=== PATIENT | female | born 1940 | race Caucasian/White ===

== ENCOUNTER 2025-07-10 21:01 | Inpatient (IN) | payer BC, MEDICARE ==
[~2025-07-10] VITALS: Ht 157.5 cm; Wt 48.0 kg
[2025-07-10] MEDS ORDERED: SENN-302 PO (21:32)
[2025-07-10] MEDS ORDERED: TRAM50TA2 PO (21:32)
--- NOTE | 2025-07-10 21:38 | Physician Documentation ---
History of Present Illness General Chief Complaint: Constipation Stated Complaint: SMALL BOWEL OBSTRUCTION Time Seen by MD: 21:12 Mode of Arrival: EMS, Stretcher History of Present Illness Initial Comments This is a pleasant 85-year-old female with a history of bowel resection in 1960s, subsequent history of three small-bowel obstructions two of which required surgical intervention on one resolved spontaneously, presents today as a transfer from outside facility for higher level of care/general surgical consultation because she was diagnosed with a small-bowel obstruction on the CT at the outside facility. She states that the pain in her right upper quadrant began yesterday without any obvious trigger provocation. It was burning pain, moderate to severe, accompanied by nausea and vomiting similar to prior small- bowel obstruction. She reports no flatus or bowel movements. Denies any chest pain or difficulty breathing. She states that after the outside facility placed in NG tube she is feeling better. No concern for tobacco, alcohol or illicit substances use. Records from the outside facility reviewed. Her note from the outside facility, 85-year-old female complaining of nausea and vomiting since last night. She complains of epigastric pain as well. She last ate last evening. She had Andrés sauce and turkey. She had partial colectomy in the for polyps. Since then she has had to three episodes of SBO. Two of those times required surgical intervention to resolve. No fever. Denies cough or URI symptoms. No dysuria or frequency. She states she has chronic constipation because she takes tramadol regularly for pain from rheumatoid arthritis. She takes tofacitinib for RA. Her daughter gave a lot of history as well as the patient. Last year after hip replacement surgery patient had an ileus that she was hospitalized for. Per the note of outside facility she has a known history of hyperlipidemia and AFib. Her physical exam was notable for tenderness in the left upper quadrant without guarding or rebound. Her white count was normal 7.13, hemoglobin was normal at 12.7, platelets were normal at 211. Renal function was normal. CT shows marked dilation of small bowel in constipation with a large bowel. The radiologist confirmed SBO. The patient was transferred to our facility. Medication Reconciliation Allergies: Coded Allergies: No Known Allergies (Unverified , 07/10/25) Scheduled Acetaminophen (Tylenol Extra Strength), 1 TABLET PO Q8H, (Reported) Atorvastatin Calcium* (Lipitor*), 1 TAB PO DAILY, (Reported) Estradiol (Estradiol), 1 PATCH TD Q7D, (Reported) Loperamide Hcl (Loperamide), 1 CAP PO Q2H, (Reported) Lorazepam (Ativan), 1 TAB PO Q6H, (Reported) Melatonin (Melatonin), 1 TAB PO HS, (Reported) Omeprazole (Prilosec), 1 CAP PO DAILY, (Reported) Sennosides/Docusate Sodium (Senna Plus 8.6-50 mg Tablet), 2 TAB PO HS, (Reported) Tofacitinib Citrate (Xeljanz), 1 TAB PO Q12H, (Reported) Scheduled PRN ONDANSETRON ODT 4mg tablet (Ondansetron Odt), 1 TAB PO Q6H PRN PRN for nausea/vomiting, (Reported) Tramadol HCl (Tramadol HCl), 50 TAB PO Q12H PRN PRN for pain, (Reported) Miscellaneous Medications Naloxone HCl (Naloxone HCl), (Reported) Review of Systems ROS 10 point review of systems was performed and unless noted above in HPI is negative for acute process/complaint. Physical Exam Physical Exam Vital Signs: Temperature: 97.6, Source: Temporal, Heart Rate: 82, Respiratory Rate: 20, BP: 136/72, Pulse Oximetry: 98, Weight: 48.000 Oxygen Flow Rate: 0 Physical Exam GENERAL: Awake, alert, oriented, GCS 15, no apparent distress, non-toxic appearing, answers questions, follows commands appropriately. HEENT: Atraumatic, normocephalic, NG-tube noted, pupils equal, extraocular muscles intact, sclerae anicteric, mucus membranes moist, oropharynx is clear, no stridor. NECK: supple, full active range of motion, trachea midline, no thyromegaly, no lymphadenopathy, no JVD. CARDIOVASCULAR: regular rate/rhythm, no murmurs/gallops/rubs, Pulses are 2+ in all extremities and symmetric. Capillary refill less than 2 seconds. PULMONARY: Nonlabored, good air movement ,no respiratory distress, speaking in full sentences, clear to auscultation bilaterally, no wheezing, no ronchi, no rales, no accessory muscle use. GASTROINTESTINAL: Soft, diffusely tender without guarding or rebound, non- distended, normal active bowel sounds, no organomegaly, no pulsatile masses, no CVA tenderness. NEUROLOGIC: Lucid with normal mental status. Normal facial symmetry. Moves all extremities symmetrically and with purpose. No truncal ataxia. Speech is fluid without evidence of dysarthria or aphasia, no focal deficits appreciated. MUSCULOSKELETAL: There is full range of motion of all extremities. There is no joint pain or joint swelling or joint erythema. There is no muscle pain or tenderness or swelling. EXTREMITIES: warm, well-perfused, no cyanosis, no clubbing, no edema, no acute deformities. Skin: warm, dry, no rashes or lesions, no jaundice, no petechiae orpurpura. No ecchymosis. PSYCHIATRIC: Normal affect, normal insight, normal concentration. Focused exam: [] Progress Results/Orders Results/Orders Orders - INDIA MORILLO DO Electrocardiogram (07/10/25 21:23) Culture Blood (07/10/25 21:23) Page Hospitalist (07/10/25 21:23) Fill Out Med Reconciliation (07/10/25 21:23) Ct Abdomen Pelvis (07/11/25 10:53) Completed Orders - INDIA MORILLO DO Electrocardiogram (07/10/25 21:23) Cbc/Diff (07/10/25 21:23) MG (07/10/25 21:23) CMP (07/10/25 21:23) Hs Troponin I W Calculations (07/10/25 21:23) Hs Troponin I W Calculations (07/10/25 23:23) Lacticsepsis (07/10/25 21:23) Diatr Meglu/Diatrizoate 30ml (Gastrograf (07/10/25 23:00) Ondansetron Inj. (Zofran 4mg/2ml Vial) (07/10/25 21:25) Morphine 4mg/Ml Inj. (Morphine Inj.) (07/10/25 21:25) Ct Abdomen Pelvis (07/11/25 10:53) Morphine 4mg/Ml Inj. (Morphine Inj.) (07/11/25 00:20) Vital Signs 07/10/25 07/10/25 07/10/25 07/10/25 21:12 21:16 21:22 21:42 Temp 97.8 97.6 Pulse 74 82 Resp 20 20 17 B/P (MAP) 136/72 136/72 (93) Pulse Ox 97 98 O2 Flow Rate 0 0 07/10/25 23:49 Temp 97.6 Pulse 78 Resp 15 B/P (MAP) 129/67 (87) Pulse Ox 98 O2 Flow Rate 0 Laboratory Tests Test 07/10/25 22:07 07/10/25 23:18 White Blood Count 6.7 Red Blood Count 4.25 Hemoglobin 12.3 Hematocrit 37.2 Mean Corpuscular Volume 87.4 Mean Corpuscular Hemoglobin 28.9 Mean Corpuscular Hemoglobin Concent 33.1 Red Cell Distribution Width 14.9 H Platelet Count 199 Mean Platelet Volume 8.0 Neutrophils (%) (Auto) 79.8 H Lymphocytes (%) (Auto) 7.6 L Monocytes (%) (Auto) 12.0 Eosinophils (%) (Auto) 0.3 Basophils (%) (Auto) 0.3 Neutrophils # (Auto) 5.4 Lymphocytes # (Auto) 0.5 L Monocytes # (Auto) 0.8 Eosinophils # (Auto) 0.0 Basophils # (Auto) 0.0 CBC Comment Sodium Level 136 Potassium Level 4.5 Chloride Level 103 Carbon Dioxide Level 28.5 Anion Gap 5 L Blood Urea Nitrogen 16 Creatinine 0.99 H Estimated GFR/1.73 m2 53 BUN/Creatinine Ratio 16.2 Glucose Level 114 H Lactic Acid Level 1.3 Calcium Level 8.5 Magnesium Level 1.9 Total Bilirubin 1.4 H Aspartate Amino Transf (AST/SGOT) 18 Alanine Aminotransferase (ALT/SGPT) 11 L Alkaline Phosphatase 77 Troponin I High Sensitivity 15 14 Total Protein 6.8 Albumin 3.1 L Globulin 3.7 Albumin/Globulin Ratio 0.8 L Chemistry Comments Troponin I High Sens Percent Delta 6 Troponin I Hi Sens Absolute Change -1 Microbiology Date/Time Source Procedure Growth Status 07/10/25 22:08 Blood Arm Left Blood Culture - Preliminary NO GROWTH AFTER 1 DAY Resulted EKG/XRAY/CT/US/VASC/MRI EKG : Additional Comment EKG was obtained and interpreted by myself shows sinus rhythm of 72, normal KS interval, narrow QRS, no QT prolongation, normal axis, no STEMI Medical Decision Making Additional information obtaine: old records, other (EMS) Findings Facility Status: ED Holds, E process The plan was discussed with the patient, who demonstrates clear understanding of the plan and is in agreement with the plan unless otherwise noted in the chart. All questions have been answered, all concerns were addressed unless otherwise documented. I was available throughout their ED stay for frequent reassessment and questions. Differential Diagnoses (considered and possible or likely): [Differential diagnosis considered includes most likely represents small bowel obstruction, b ased on outside diagnosis, less likely acute appendicitis, acute cholecystitis, pancreatitis, gastritis, PUD, diverticulitis, mesenteric ischemia, abdominal aortic aneurysm, enteritis, colitis, fecal impaction, volvulus, IBS, inflammatory bowel disease, specific food intolerance, peritonitis, perforated viscous, malignancy, UTI, abscess, and abdominal pain NOS. Pelvic source of pain was also considered including endometritis, dysmenorrhea, ovarian cyst, ovarian torsion, PID, TOA, cervicitis, vaginitis, or uterine fibroid. History, physical exam, and workup exclude many of the more serious causes listed above. ] ??Differential Diagnoses (considered and unlikely, not requiring evaluation currently): [Aortic/great vessels dissection was considered but it is unlikely based on absence of ripping, tearing, migratory chest pain, absence of syncope or focal neurologic deficits, physical examination indicating equal and symmetric pulses.] MDM Data Please see [facility] for the following: Independent Historians and external Records Review. Historian: [Patient] Independent Historians: ?[Transfer EMS, record review] Medication Management: [Reviewed medication list] Social History and determinants: [Reviewed] Please see the body of the note for the following: Any independent interpretations of ECG, imaging studies. All vitals signs/haemodynamics, ordered tests were independently reviewed and interpreted by myself. Nursing triage complaint and vitals reviewed, additional nursing notes were reviewed as available and I agree unless otherwise noted or documented in contradiction in the chart Vital Signs: Independently reviewed Labs: Independently interpreted Imaging: Independently interpreted Old Medical Records: Independently reviewed, see [facility] for relevant summary and information Pulse Oximetry: [98%] interpreted as [normal on room air] by me [Patient Accounts Specialist: [Regular Rate, Regular rhythm, no ectopy, NSR] reviewed and interpreted by me] Additionally notably showing: [Hemodynamically she is stable.] Tests considered but not ordered include: [Imaging will be repeated with oral contrast administered over prolonged period of time to determine the transition point] Social Determinants of Health Impact: Patient was evaluated in [place] due to below par ratio of patient to medical providers. [] Comorbid Conditions Impacting Present Evaluation and Care/Treatment: [History of bowel resection small-bowel obstruction] Management Discussions with other Healthcare Providers: [Hospitalist regarding admission] Treatment and Disposition Medication Management (Given or considered): [Pain management and nausea management]. See EMR for details Consideration for Hospitalization/Escalation/Deescalation of Care: Admission for observation has been considered, for further management of her small-bowel obstruction ?ED Course:?[No clinical deterioration] ?Shared decision making:?[] Code status:?FULL Please see the full Electronic Medical Record for full details of nursing docume ntation, medications list, other records of complete past medical history and conditions, vital signs, laboratory studies, and any radiologic study interpretations by radiologists. Portions of this note were completed using Lala dictation software and as a result there may exist minor errors in spelling. I have reviewed elements of past family and social history and agree as included in note. Differential Diagnosis See main body of the note Departure Admitted to Inpatient Unit: to hospitalist Impression: Primary Impression: Small bowel obstruction Referrals: NO PRIMARY CARE PROVIDER (PCP) Signature Scribe Signature: No scribe Attestation: Date: Jul 10, 2025 Time: 21:33 This note accurately reflects clinical decisions, work performed by myself, India Morillo, INDIA LEUNG DO Jul 10, 2025 21:38
--- NOTE | 2025-07-10 21:40 | ELECTROCARDIOGRAPH REPORT ---
[facility] Test Date: 2025-07-10 Test Time: 21:37:01 Pat Name: ROSIO DICKERSON Department: [facility]- Patient ID: [facility]-[id number] Room: [place] [address] Gender: F Sql Dba: : 1940 Requested By: INDIA MORILLO Order Number: [id number] Reading MD: Dr. Nico Jain Measurements Intervals [place] Rate: 72 P: 83 [place]: 185 QRS: 21 QRSD: 92 T: 10 QT: 409 QTc: 448 Interpretive Statements Sinus rhythm Anteroseptal infarct, age indeterminate Electronically Signed On 07-11-2025 8:53:[address] Nico Jain Please click the below link to view image of tracing.
[2025-07-10] MEDS: morphine 4 MG/ML inj SYRINge IV ONE (21:42)
[2025-07-10] MEDS: ondansetron/PF 4mg/2ml inj IV ONE (21:45)
[2025-07-10 22:17] LABS: MEAN PLATELET VOLUME 8.0 FL (7.4-10.4); RED CELL DISTRIBUTION WIDTH 14.9 % (11.5-14.5)
[2025-07-10 22:31] LABS: CREATININE 0.99 MG/DL (0.40-0.90); TOTAL CARBON DIOXIDE 28.5 MMOL/L (24-32); eCRCL 31 ML/MIN; eGFR 53 ML/MIN
[2025-07-10] MEDS: diatr meglu/diatrizoate 30ml oral sol.-(3 dose) bottle PO SCH (23:16)
[2025-07-11] MEDS ORDERED: potassium Cl 20 mEq SR tablet PO PRN ×2 (00:15)
[2025-07-11] MEDS ORDERED: magnesium sulf-water 4G/100mL 100 ML IV PRN (00:15)
[2025-07-11] MEDS ORDERED: potassium Cl 40MEQ/1/2NS 520ml 520 ML IV PRN (00:15)
[2025-07-11] MEDS ORDERED: HYDROcodone/acetaminophen 10/325mg tab PO PRN (00:15)
[2025-07-11] MEDS ORDERED: magnesium hydroxide 30ml (MOM) UD suspension PO PRN (00:15)
[2025-07-11] MEDS ORDERED: mag hydrox/Alum hydrox/simeth 30ml oral suspension PO PRN (00:15)
[2025-07-11] MEDS ORDERED: magnesium Cl slow-release 64mg tablet PO PRN (00:15)
[2025-07-11] MEDS ORDERED: magnesium sulf-water 2g/50mL 50 ML IV PRN (00:15)
[2025-07-11] MEDS ORDERED: HYDROcodone/acetaminophen 5mg/325mg tablet PO PRN (00:15)
[2025-07-11] MEDS: morphine 4 MG/ML inj SYRINge IV ONE (00:24)
[2025-07-11] MEDS: normal saline 1000ml 1,000 ML IV SCH (01:22)
--- NOTE | 2025-07-11 02:01 | HISTORY AND PHYSICAL-Residence ---
History & Physical Providers to CC Resident Creating Document: WALESKA LY, RES CC: NGOZI SALOMON MD ~ History of Present Illness Reason for Admit\Complaint: Small-bowel obstruction History of Present Illness 85-year-old fragile female patient, past history of recurrent small-bowel obstructions, partial bowel resection, severe rheumatoid arthritis was a transferred to us from [facility]. As per records, patient presented to the ED with chief complaints of severe epigastric pain, associated with three episodes of emesis of bilious in nature. Patient has a had three small bowel obstructions in the past, two out of which required surgical intervention to resolve. Patient had abdominal CT done at [facility], which showed findings consistent with small-bowel obstruction not extensive. Patient was placed on NG tube, which drained bilious fluid. Patient reported significant decrease in discomfort/pain post NG tube placement. Patient was transferred to our facility possible further intervention. Patient also has a history of ileus post hip replacement surgery last year Patient lives alone in her house Patient's daughter stays about 75 miles from patient's house Patient's primary care doctor is Dr. Alex Carrizales from [facility] As per patient, normally does not use a walker. Has had multiple falls in the last one year, has had a wrist fracture and hip fracture because of falls. Allergies: Coded Allergies: No Known Allergies (Unverified , 07/10/25) Home Medications Home Medications Active Reported Senna Plus 8.6-50 mg Tablet (Sennosides/Docusate Sodium) 8.6 Mg-50 Mg Tablet 2 Tab PO HS 14 Days Tramadol HCl 50 Mg Tablet 50 Tab PO Q12H PRN PRN 30 Days Past Medical History Past Medical History Prior three small-bowel obstructions Rheumatoid arthritis Chronic constipation Hypothyroidism Past Surgical History Surgical History Comment History of bowel resection for a polyp of 2 cm, partial bowel resection in 1959 Right hip replacement Bilateral breast augmentation Appendectomy Tonsillectomy Past Social History Social History Comment Patient has smoked for two years when she was young Patient denies any alcohol, tobacco use, current smoking history, illicit drug use ROS ROS Constitutional: No fever, dizziness, weakness, no decrease in appetite HEENT: Normal vision. No sore throat, epistaxis, tinnitus Cardiovascular: No chest pain/discomfort, palpitations, syncope. no pedal edema Respiratory: No sob, cough,hemoptysis Gastrointestinal: Moderate abdominal pain, nausea, vomiting. No diarrhea, melena. Genitourinary: No frquency, urgency, incontinence, nocturia. No dysuria, hematuria Musculoskeletal: Normal, no pains Endocrine: No fatigue, polydipsia, polyuria. No heat or cold intolerance Neurologic: No headache, vertigo. No weakness, numbness or tingling of extremities Psychiatric: No hallucinations/delusions, no anhedonia, no suicidal ideation Hematologic: No bruises Exam Vitals: Vital Signs Date Time Temp Pulse Resp B/P (MAP) Pulse Ox O2 Delivery O2 Flow Rate FiO2 07/11/25 00:24 15 07/10/25 23:49 97.6 78 129/67 (87) 98 0 General: General: Awake, oriented to person, place and time, frail elderly woman HEENT: Conjunctive are pale, sclerae clear, no icterus, pupil is equal in both sides, reactive to light, no ear discharge, no pharyngeal erythema or an edema. NG tube in place-bilious fluid could be noted Neck: Supple, no JVD, no lymphadenopathy and thyromegaly. Chest: Equal air entry on both lungs, no additional sounds no rhonchi no wheezing at the moment. Bilateral breast implants Cardiovascular: S1-S2 regular sinus rhythm and, regular rate, no gallops, no rubs, no murmurs Abdomen: No visible peristalsis, bowel sounds absent on auscultation, soft, diffuse moderate tenderness, no guarding, no rigidity. Abdominal surgical scar noted Extremities:no pitting edema bilaterally, capillary refill intact, peripheral pulsations are intact on both sides, extremely deformed rheumatoid bilateral upper extremities bilateral knees and bilateral toes, chronic venous stasis and severe scaling noted on bilateral lower extremity, onychomycosis noted on all toes Neurologic: Mental status: alert and conscious, oriented to place, person and time, preserved memory, normal speech. Cranial nerves I-XII: Normal. Motor system: Preserved power, coordination, no evidenced involuntary movements, strength 5/5 in four extremities. Sensory system: Preserved temperature, pain and vibration sensation. 2+ deep tendon reflexes in biceps, triceps, quadriceps. Negative Babinski. Cerebellar: No nystagmus, dysdiadochokinesia, normal [id number] testing. Musculoskeletal: Scoliosis noted,extremely deformed bilateral knees and bilateral toes, chronic venous stasis and severe scaling noted on bilateral lower extremity, onychomycosis noted on all toes Skin: Warm and dry. Dry oral mucosa. Diagnostic Data Last Recorded Lab Results: 07/10/25220607/10/252206 Advance Care Planning Advanced Care plannin - 30 Minutes (Spent 18 minutes discussing advanced care directive/resuscitative methods patient decided she wanted to be a DNR) Additional Plan Assessment :85-year-old fragile female patient, past history of recurrent small- bowel obstructions, partial bowel resection, severe rheumatoid arthritis was a transferred to us from [facility] for further evaluation of current episode of small-bowel obstruction Small-bowel obstruction-NG tube in place draining bilious fluid Recurrent small-bowel obstruction Status post bowel resection post polyps Patient had chief complaints of abdominal pain, the patient in the epigastric region and diffuse abdominal pain throughout and had multiple episodes of bilious emesis CT scan as per [facility]: Small-bowel obstruction not extensive, small amount of free fluid in the pelvis, moderate constipation As per patient, the pain/discomfort decreased post NG tube placement([facility]) Her abdomen on palpation did not seem rigid, no bowel sounds were appreciated on auscultation. Did not consult surgeon as this time, because of the moderate severity of SBO and relief post NG tube placement Lactic acid, potassium within normal limits Plan NPO, NG tube in place CTA abdomen pelvis with oral contrast has been ordered Please consult surgeon in am Initiated the patient on fluids normal saline 100 mL/hour Severe Rheumatoid arthritis Patient is on biological Xeljanz XR (tofacitinib) Patient also take tramadol for her pain Pain medications in place Atrial fibrillation history Jhonatan Vasc score three Patient has a history of atrial fibrillation, does not take any anticoagulants for that Current EKG sinus rhythm Patient stated that she did take an anticoagulant once, but it made her very dizzy and upset her stomach and she did not want to take anything for it as she feels it is well controlled Ordered echocardiogram Telemetry monitoring ordered Chronic constipation Patient stated that she developed constipation after taking pain medications for her rheumatoid arthritis She takes senna for her constipation regularly Bowel care in place History of hypothyroidism Patient states that she has a history of hypothyroidism, but stopped taking medications as it was controlled Ordered TSH Moderate malnutrition BMI 19.4kg/m2, albumin 3.[address] History of recurrent falls Fall precautions in place History of depression Patient normally uses estradiol patch, continue once med rec is done Code Status: DNR DVT Prophylaxis: SCDs Analgesia/Sedation: Morphine/Oscar Lines/Tubes: PIV Nutrition: NPO PT:yes Prognosis: Guarded Disposition: Continue to monitor the patient, please contact surgeon in the a.m. med rec pending Waleska Ly MD Internal medicine resident,PGY-1 Patient discussed with resident. I agree with the H&P and assessment and plan as documented, with no changes. Ngozi Salomon MD Critical Care Date of Service: Jul 11, 2025 Billing Provider: NGOZI SALOMON MD, JAHNAVI, RES Jul 11, 2025 02:01 NGOZI SALOMON MD Jul 11, 2025 18:25
[2025-07-11] MEDS: PERFLUTREN PROTEIN-A MICROSPHR (Optison) 0.22 MG/ML 3ML VIAL IV ONE (02:25)
[2025-07-11 03:00] VITALS: BP 137/77; PULSE 81; RESP 18; TEMP 98; O2SAT 94
[2025-07-11 06:00] VITALS: BP 107/73; PULSE 66; RESP 16; TEMP 98.6; O2SAT 99
[2025-07-11] MEDS ORDERED: LORA-269 PO (07:10)
[2025-07-11] MEDS ORDERED: ATOR40TA PO (07:10)
[2025-07-11] MEDS ORDERED: OMEP40CA21 PO (07:10)
[2025-07-11] MEDS ORDERED: ONDA-243 PO (07:10)
[2025-07-11] MEDS ORDERED: LOPE2CAP PO (07:10)
[2025-07-11] MEDS ORDERED: MELA5TAB50 PO (07:10)
[2025-07-11] MEDS ORDERED: ACET-812 PO (07:10)
[2025-07-11] MEDS ORDERED: ESTR1PAT81 TD (07:10)
[2025-07-11] MEDS ORDERED: NALO4SPR22 (07:10)
[2025-07-11] MEDS ORDERED: TOFA5TAB PO (07:10)
[2025-07-11 07:17] LABS: PHOSPHORUS 3.8 MG/DL (2.3-4.5); PRO BRAIN NATRIURETIC PEPTIDE 2456.0 PG/ML (0-450)
[2025-07-11 08:00] VITALS: RESP 16; O2SAT 99
[2025-07-11] MEDS: K and/or MAG REPLACEMENT MC SCH (08:00)
[2025-07-11] MEDS: docusate sod 100mg capsule PO SCH (08:00)
[2025-07-11] MEDS: ondansetron/PF 4mg/2ml inj IV PRN (08:39)
[2025-07-11] MEDS ORDERED: iohexol 300mg/ml 100ml inj. ONE (09:41)
[2025-07-11 10:00] VITALS: BP 129/74; PULSE 78; RESP 18; TEMP 98.3; O2SAT 98
--- NOTE | 2025-07-11 11:22 | RADIOLOGY REPORT ---
Indication: Small-bowel obstruction on previous CT, repeating with the oral contrast Technique: CT axial images of the abdomen and pelvis are obtained without contrast. Coronal and sagittal reformats were obtained. Radiation Dose Information: CTDI volume is 12 mGy. Dose-length product is 579 mGy*cm Comparison: None FINDINGS: The lung bases demonstrate atelectasis. Bilateral breast capsular calcifications. Adrenal glands, spleen, pancreas unremarkable in shape. Distended gallbladder. Liver unremarkable in shape. The kidneys demonstrate no hydronephrosis /nephrolithiasis. Nasogastric tube projecting towards the mid stomach. Stomach is partially distended. Small bowel loops are abnormally dilated up to 4.5 cm with multiple air-fluid levels. There is narrowing of the small bowel in the right lower quadrant axial image 61 of 119 there is some contrast within the ascending and proximal transverse colon Large volume stool in the colon. Appendix is not well characterized. New Abdominal aortic atherosclerotic disease. Bladder partially distended. Trace free pelvic fluid. No inguinal lymphadenopathy. Right hip arthroplasty. Moderate thoracolumbar degenerative disc disease. Thoracolumbar levocurvature. Small amount of ascites fluid. Postsurgical changes anterior abdominal wall. IMPRESSION: Limited evaluation without IV contrast. Multiple loops of abnormally dilated small bowel up to 4.5 cm with air-fluid levels and luminal narrowing in the right lower quadrant suggesting partial small bowel obstruction, possibly partial high-grade SBO. Recommend surgical consultation. Small amount of contrast seen within the distal small bowel loops which are nondistended as well as the proximal colon Mesenteric edema and small amount of ascites fluid which may be secondary to the underlying small bowel obstruction. Large volume stool in the colon. Disease. Other findings as described.
[2025-07-11] MEDS: acetaminophen 1,000mg/100ml IV 100 ML IV ONE (11:59)
[2025-07-11] MEDS: FLU VACC TS2025-26(6MOS UP)/PF (FLULAVAL) 45 MCG/0.5 ML SYRINGE IMVAC ONE (12:00)
--- NOTE | 2025-07-11 12:14 | PROGRESS NOTE- Residence ---
Progress Note - Resident Providers to CC Resident Creating Document: JUAN HERNANDEZ RES ~ Antibiotic Timeout Antibiotic Ordered?: No Subjective Patient was seen and examined bedside. She had no further vomiting episodes. Her NG tube drained 500 cc bilious fluid. She is nauseous and has abdominal pain of severity 7/10. She complains of pain in her hands and legs due to rheumatoid arthritis. Her last bowel movement was on Sunday. She states that she has not been passing gas. She has no fever, chills. Objective Vital Signs Date Time Temp Pulse Resp B/P (MAP) Pulse Ox O2 Delivery O2 Flow Rate FiO2 07/11/25 10:17 16 07/11/25 10:00 98.3 78 129/74 (92) 98 Room Air 07/10/25 23:49 0 Result Diagram: 07/10/25 2207 07/11/25 0613 Awake , alert, and oriented x4, malnourished, in mild distress HEENT: Atraumatic, normocephalic, EOMI, anicteric sclera ; pink conjunctiva, NG tube in place, dry mucous membranes Neck: Trachea midline. Supple, full range of motion, no JVD Cardiac: Regular rhythm, regular rate with no murmurs all over the precordium, bilateral breast implants present Respiratory: Equal breath sounds bilaterally, no tachypnea, no wheezing ,rub or rales, Chest wall is symmetric and without deformity. Gastrointestinal: Abdomen non-distended, soft, diffuse moderate abdominal tenderness noted, no guarding, rigidity, hypoactive bowel sounds heard, abdominal surgical scar noted Musculoskeletal: Scoliosis noted, extremely deformed rheumatoid bilateral upper extremities, knees and bilateral toes, severe scaling noted on bilateral lower extremity, onychomycosis noted on all toes, no pitting edema, peripheral pulsations are intact on both sides Neurological: Speech is clear, alert, and oriented x 4. No motor or sensory deficit, deep tendon reflexes normal, cerebellar intact. Cranial nerves II-XII intact. Skin: Warm and dry Assessment Assessment 85-year-old female with history of recurrent small-bowel obstructions, partial bowel resection, severe rheumatoid arthritis transferred from [facility] for further evaluation of current episode of small-bowel obstruction Plan Plan Small-bowel obstruction-NG tube in place draining bilious fluid Recurrent small-bowel obstruction s/p bowel resection post polyp of 2 cm in 1960 Patient had chief complaints of abdominal pain, the patient in the epigastric region and diffuse abdominal pain throughout and had multiple episodes of bilious emesis CT scan as per [facility]: Small-bowel obstruction not extensive, small amount of free fluid in the pelvis, moderate constipation As per patient, the pain/discomfort decreased post NG tube placement([facility]) Her abdomen on palpation did not seem rigid, no bowel sounds were appreciated on auscultation. Did not consult surgeon as this time, because of the moderate severity of SBO and relief post NG tube placement Lactic acid, potassium within normal limits Plan NPO, NG tube in place CTA abdomen pelvis with oral contrast has been ordered Please consult surgeon in am Initiated the patient on fluids normal saline 100 mL/hour 07/11/25 No further vomiting episodes, patient is nauseous and abdomen pain slightly reduced to severity of 7/10 NG tube drained 500 mL bilious fluid Hypoactive bowel sounds heard Diffuse abdominal tenderness present with no rigidity Patient is allergic to contrast, hence prednisone 50 mg and Benadryl 50 mg was given abdomen/pelvis CT with oral contrast Abdomen/pelvis CT with oral contrast shows multiple loops of abnormally dilated small bowel up to 4.5 cm with air-fluid levels and luminal narrowing in the right lower quadrant suggesting partial small bowel obstruction, possibly partial high-grade SBO. -small amount of contrast seen within the distal small bowel loops which are nondistended as well as the proximal colon -mesenteric edema and small amount of ascites fluid which may be secondary to the underlying small bowel obstruction -large volume stool in the colon Continue NS at 100 mL/hour, BNP elevated-2456, follow up echo and adjust fluids Total bilirubin is 1.4, follow up direct bilirubin Continue IV Zofran 4 mg q.6h p.r.n. Surgery, Dr. Nunn was consulted and awaiting recommendations Severe Rheumatoid arthritis Patient is on biological Xeljanz XR (tofacitinib) Patient also takes tramadol for her pain Pain medications in place Started IV acetaminophen, we will continue home meds after resolution of SBO Atrial fibrillation history Jhonatan Vasc score three Patient has a history of atrial fibrillation, does not take any anticoagulants for that Current EKG sinus rhythm Patient stated that she did take an anticoagulant once, but it made her very dizzy and upset her stomach and she did not want to take anything for it as she feels it is well controlled Follow up echo Continue telemetry monitoring Chronic constipation Patient stated that she developed constipation after taking pain medications for her rheumatoid arthritis She takes senna for her constipation regularly Bowel care in place History of hypothyroidism Patient states that she has a history of hypothyroidism, but stopped taking medications as it was controlled TSH is normal-4.22 Moderate malnutrition BMI 19.4kg/m2, albumin 3.[address] History of recurrent falls Fall precautions in place History of depression Patient normally uses estradiol patch, continue once med rec is done Code Status: DNR DVT Prophylaxis: SCDs Analgesia/Sedation: Morphine/[place] Lines/Tubes: PIV Nutrition: NPO PT:yes Prognosis: Guarded Disposition: Awaiting Dr. Nunn's recommendations, PT eval and DC plan Resident MD attestation: The patient note has been reviewed and supervised by senior residents PGY-2/ PGY-3. Patient was seen, examined and discussed with attending physician. Juan Hernandez MD Internal Medicine resident, PGY-1 Date of Service: Jul 11, 2025 Billing Provider: MELANIE LOPEZ MD, PREETHI, RES Jul 11, 2025 12:14
[2025-07-11 18:00] VITALS: BP 117/62; PULSE 77; RESP 18; TEMP 98.4; O2SAT 97
--- NOTE | 2025-07-11 20:13 | CONSULTATION REPORT ---
History of Present Illness Providers to CC CC: TIFFANIE GALEANA MD ~ Reason for Admit\Admit Dx: Small-bowel obstruction History of Present Illness 85-year-old woman with history of partial colectomy and reported history of three additional laparotomy procedures for small-bowel obstruction. Transferred from [facility] with a small-bowel obstruction. Admitted here this morning and repeat CT scan with oral contrast shows persistent high-grade small bowel obstruction. Abdominal pain and distention. Laboratory studies were reassuring, however, no clear transit of enteral contrast beyond the area of concern. Nasogastric tube with moderate to high output of dark bilious fluid. Allergies: Coded Allergies: No Known Allergies (Unverified , 07/10/25) Home Medications Home Medications Active Reported Loperamide (Loperamide Hcl) 2 Mg Capsule 1 Cap PO Q2H Naloxone HCl 4 Mg/Actuation [place] Lipitor* (Atorvastatin Calcium) 40 Mg Tablet 1 Tab PO DAILY 30 Days Prilosec (Omeprazole) 40 Mg Capsule 1 Cap PO DAILY 30 Days Estradiol 0.05 Mg/24 Hour Patch.tdwk 1 Patch TD Q7D 28 Days Melatonin 5 Mg Tab.chew 1 Tab PO HS 30 Days Tylenol Extra Strength (Acetaminophen) 500 Mg Tablet 1 Tablet PO Q8H Xeljanz (Tofacitinib Citrate) 5 Mg Tablet 1 Tab PO Q12H 30 Days Ondansetron Odt (Ondansetron HCl) 4 Mg Tab.rapdis 1 Tab PO Q6H PRN PRN 4 Days Ativan (Lorazepam) 1 Mg Tablet 1 Tab PO Q6H 30 Days Senna Plus 8.6-50 mg Tablet (Sennosides/Docusate Sodium) 8.6 Mg-50 Mg Tablet 2 Tab PO HS 14 Days Tramadol HCl 50 Mg Tablet 50 Tab PO Q12H PRN PRN 30 Days Past Medical History Medical History Comment Anxiety Hyperlipidemia Gastroesophageal reflux disease Past Surgical History Surgical History Comment Partial colectomy Exploratory laparotomy x3 for small-bowel obstruction Past Family History Family History Comment Noncontributory Family History: FH: Parkinson's disease MOTHER Past Social History Social History Comment Not applicable Health Maintenance Health Maintenance Not applicable Physical Exam Last Vital Signs Recorded: RN Vital Signs have been reviewed: Yes, Temperature: 98.4, Source: Oral, Heart Rate: 77, Respiratory Rate: 18, BP: 117/62, Pulse Oximetry: 97, Weight: 48.000 General Appearance: alert, thin EENT: PERRL/EOMI; No: scleral icterus (R), scleral icterus (L) Neck: normal inspection, supple Respiratory: lungs clear Cardiovascular: normal peripheral pulses, regular rate, rhythm Gastrointestinal Distended Surgical scars consistent with past surgical history No palpable masses or hernias Tenderness to palpation-diffuse without rebound tenderness Rectal: deferred Back: normal inspection, no CVA tenderness Extremities: non-tender, normal inspection, no edema Neurologic: oriented x4 Psychiatric: normal mood/affect, anxiety Results Diagram Lab Result Diagram: 07/10/257 07/11/25 0613 Assessment/Plan Problems/Diagnosis: (1) Small bowel obstruction Assessment & Plan: Recurrent Despite nasogastric tube decompression for greater than [address] scan with enteral contrast, there was no progression Bowel obstruction persists Abdominal tenderness The risks, benefits, and alternatives to an exploratory laparotomy, possible bowel resection were discussed with the patient. Risks include, but are not limited to, bleeding, infection, injury to intra-abdominal structures, leakage from the intestine and the need for additional surgery. Patient verbalized understanding and we will proceed with surgery 1st thing tomorrow morning. TIFFANIE GALEANA MD Jul 11, 2025 20:13
[2025-07-11] MEDS: diazepam inj 5 MG/ML inj. IV ONE (20:17)
[2025-07-11] MEDS: HYDROmorphone inj. 0.5 MG/0.5 ML DISP.SYRIN IV PRN (21:29)
[2025-07-11 22:00] VITALS: BP 131/68; PULSE 85; RESP 14; TEMP 97.5; O2SAT 91
[2025-07-12] VITALS (21 sets, daily range): BP systolic 117–169; BP diastolic 62–101; PULSE 73–97; RESP 10–20; TEMP 97.5–98.2; O2SAT 89–100
[2025-07-12] MEDS ORDERED: HYDROmorphone inj. 0.5 MG/0.5 ML DISP.SYRIN IM ONE (03:05)
[2025-07-12] MEDS: HYDROmorphone inj. 0.5 MG/0.5 ML DISP.SYRIN IV ONE ×2 (03:47→06:21)
[2025-07-12 06:23] LABS: MEAN PLATELET VOLUME 8.3 FL (7.4-10.4); RED CELL DISTRIBUTION WIDTH 15.1 % (11.5-14.5)
[2025-07-12 06:55] LABS: CREATININE 1.23 MG/DL (0.40-0.90); TOTAL CARBON DIOXIDE 23.6 MMOL/L (24-32); eCRCL 25 ML/MIN; eGFR 41 ML/MIN
[2025-07-12] MEDS: dextrose 50%-water 50ml dispensing syringe IV ONE (07:07)
[2025-07-12] MEDS ORDERED: BUPIVACAINE liposomal/PF 13.3 MG/ML 10mL vial IM ONE (08:00)
[2025-07-12] MEDS ORDERED: BUPIVAcaine 2.5mg/ml inj 50ml vial (contains preservative) ONE (08:00)
[2025-07-12] MEDS ORDERED: LIDOcaine 1% 30ml preserv. free vial ONE (08:00)
[2025-07-12] MEDS ORDERED: rocuronium 10mg/ml inj IV ONE (08:10)
[2025-07-12] MEDS ORDERED: propofol inj 20 ML IV ONE (08:11)
[2025-07-12] MEDS ORDERED: fentaNYL/PF 50MCG/1 ML 2ML syringe ONE (08:12)
[2025-07-12] MEDS: BUPIVAcaine/PF 2.5 mg/ml (0.25%) 30ml vial IJ ONE ×2 (08:34→08:50)
[2025-07-12] MEDS: LIDOcaine 1% 30ml preserv. free vial IJ ONE (08:34)
[2025-07-12] MEDS ORDERED: albumin (Human) 5% 250ml 0 ML IV ONE (08:35)
[2025-07-12] MEDS ORDERED: albumin (Human) 5% 250ml 250 ML IV ONE (08:35)
[2025-07-12] MEDS: BUPIVACAINE liposomal/PF 13.3 MG/ML 10mL vial IM ONE (08:50)
[2025-07-12] MEDS ORDERED: ondansetron/PF 4mg/2ml inj ONE (09:19)
[2025-07-12] MEDS ORDERED: dexamethasone sod phosphate 4mg/ml inj. ONE (09:19)
[2025-07-12] MEDS ORDERED: glycopyrrolate 0.2mg/ml inj ONE (09:20)
[2025-07-12] MEDS ORDERED: hydrALAZINE 20mg/ml inj. IV PRN (09:40)
[2025-07-12] MEDS ORDERED: HYDROmorphone/PF 0.2 MG/ML SYRINGE IV PRN (09:40)
[2025-07-12] MEDS ORDERED: ringers solution, lacted 1,000 ML IV SCH (09:40)
[2025-07-12] MEDS ORDERED: ondansetron/PF 4mg/2ml inj IV PRN (09:40)
[2025-07-12] MEDS ORDERED: fentaNYL/PF 50MCG/1 ML 2ML syringe IV PRN ×2 (09:40)
--- NOTE | 2025-07-12 09:41 | OPERATIVE REPORT ---
Operative Report Providers to CC CC: LION GALEANA MD ~ Date of Procedure: Jul 12, 2025 Pre-Operative Diagnosis: Small-bowel obstruction Post-Operative Diagnosis SAME as PRE-Op Procedure Performed Exploratory laparotomy Enterolysis Bilateral transversus abdominis plane nerve blocks by injection using 266 mg of Exparel Surgeon: Lion Galeana MD FACS Ground Instructor Basic None Anesthesiologist: Corey Berkowitz Type of Anesthesia: General Findings: High-grade small bowel obstruction related to adhesive bands; primary band a length of omentum Resolution of small-bowel obstruction with no evidence of bowel injury Wound Class I Complications None Prosthetics\Implants used: None Estimated Blood Loss: Minimal Specimen Removed: Omental adhesive band excised and discarded Description of Procedure: Patient was brought to the operating room with high-grade small bowel obstruction that had failed conservative, nonoperative management. General anesthesia was induced. Preoperative antibiotics were given. Loco catheter was placed. The abdomen was prepped and draped in the standard sterile fashion. Midline incision was made from the epigastrium to just below the umbilicus. The abdomen was entered. There were no significant adhesions to the anterior abdominal wall. Fascial incision was lengthened the entire length of the skin incision. Bowel was reduced, and in doing so, a tight omental adhesive band was identified. This was lysed and allowed for evisceration of the small bowel. Small bowel was run from the ligament of Treitz distally. There was a matted mass of small intestine in the mid small bowel and a clear transition point. Transition point appeared to have been associated with the omental band. Interloop adhesions were taken down until the entire mass of small intestine was completely freed. No serosal injuries incurred. NG tube placement was confirmed. Bilateral transversus abdominis plane nerve blocks by injection were then placed using 266 mg of Exparel. Midline fascia was closed with a running 2/0 PDS suture. Wound was irrigated and skin was closed with skin shy. Dressing was applied. Patient was awakened and taken to the postanesthesia care unit in stable condition. Counts repoted as correct: Yes LION GALEANA MD Jul 12, 2025 09:41
[2025-07-12] MEDS: labetalol 20mg/4ml (5mg/ml) syringe IV PRN (10:04)
[2025-07-12] MEDS: HYDROmorphone/PF 0.2 MG/ML SYRINGE IV PRN (10:14)
--- NOTE | 2025-07-12 10:41 | PROGRESS NOTE- Residence ---
Progress Note - Resident Providers to CC Resident Creating Document: JUAN HERNANDEZ, RES ~ Antibiotic Timeout Antibiotic Ordered?: No Subjective Patient did not have any vomiting episodes although she complained of nausea. She had moderate abdominal pain and seemed little anxious. She had no fever, chills. Her NG tube drained 500 mL dark bilious fluid. She will be getting the surgery today by Dr. Nunn. Objective Vital Signs Date Time Temp Pulse Resp B/P (MAP) Pulse Ox O2 Delivery O2 Flow Rate FiO2 07/12/25 10:20 82 18 160/88 (112) 100 Room Air 07/12/25 09:43 10.0 07/12/25 09:36 98.2 Result Diagram: 07/12/25 0541 07/12/25 05 Awake , alert, and oriented x4, malnourished, in mild distress HEENT: Atraumatic, normocephalic, EOMI, anicteric sclera ; pink conjunctiva, dry mucous membranes Neck: Trachea midline. Supple, full range of motion, no JVD Cardiac: Regular rhythm, regular rate with no murmurs all over the precordium, bilateral breast implants present Respiratory: Equal breath sounds bilaterally, no tachypnea, no wheezing ,rub or rales, Chest wall is symmetric and without deformity. Gastrointestinal: Abdomen non-distended, soft, diffuse moderate abdominal tenderness noted, no guarding, rigidity, hypoactive bowel sounds heard, abdominal surgical scar noted Musculoskeletal: Scoliosis noted, extremely deformed rheumatoid bilateral upper extremities, knees and bilateral toes, severe scaling noted on bilateral lower extremity, onychomycosis noted on all toes, no pitting edema, peripheral pulsations are intact on both sides Neurological: Speech is clear, alert, and oriented x 4. No motor or sensory deficit, deep tendon reflexes normal, cerebellar intact. Cranial nerves II-XII intact. Skin: Warm and dry Assessment Assessment 85-year-old female with history of recurrent small-bowel obstructions, partial bowel resection, severe rheumatoid arthritis transferred from [facility] for further evaluation of current episode of small-bowel obstruction. Plan Plan Small-bowel obstruction-NG tube in place draining bilious fluid Recurrent small-bowel obstruction s/p bowel resection post polyp of 2 cm in 1960 Patient had chief complaints of abdominal pain, the patient in the epigastric region and diffuse abdominal pain throughout and had multiple episodes of bilious emesis CT scan as per [facility]: Small-bowel obstruction not extensive, small amount of free fluid in the pelvis, moderate constipation As per patient, the pain/discomfort decreased post NG tube placement([facility]) Her abdomen on palpation did not seem rigid, no bowel sounds were appreciated on auscultation. Did not consult surgeon as this time, because of the moderate severity of SBO and relief post NG tube placement Lactic acid, potassium within normal limits Plan NPO, NG tube in place CTA abdomen pelvis with oral contrast has been ordered Please consult surgeon in am Initiated the patient on fluids normal saline 100 mL/hour 07/11/25 No further vomiting episodes, patient is nauseous and abdomen pain slightly reduced to severity of 7/10 NG tube drained 500 mL bilious fluid Hypoactive bowel sounds heard Diffuse abdominal tenderness present with no rigidity Patient is allergic to contrast, hence prednisone 50 mg and Benadryl 50 mg was given abdomen/pelvis CT with oral contrast Abdomen/pelvis CT with oral contrast shows multiple loops of abnormally dilated small bowel up to 4.5 cm with air-fluid levels and luminal narrowing in the right lower quadrant suggesting partial small bowel obstruction, possibly partial high-grade SBO. -small amount of contrast seen within the distal small bowel loops which are nondistended as well as the proximal colon -mesenteric edema and small amount of ascites fluid which may be secondary to the underlying small bowel obstruction -large volume stool in the colon Continue NS at 100 mL/hour, BNP elevated-2456, follow up echo and adjust fluids Total bilirubin is 1.4, follow up direct bilirubin Continue IV Zofran 4 mg q.6h p.r.n. Surgery, Dr. Nunn was consulted and awaiting recommendations 07/12/25 NG tube drained 500 mL of dark bilious fluid Patient complains of moderate abdominal pain and nausea, no vomiting episodes, no fever, chills Total bilirubin is 1.5, diet bilirubin is 0.3- indirect hyperbilirubinemia, most probably due to stress She is scheduled for surgery today by Dr. Nunn-exploratory laparotomy with possible partial bowel resection Reduced rate of NS to 50 mL/hour due to elevated BNP of 2456, although patient is not fluid overloaded Severe Rheumatoid arthritis Patient is on biological Xeljanz XR (tofacitinib) Patient also takes tramadol for her pain Pain medications in place Started IV acetaminophen, we will continue home meds after resolution of SBO Atrial fibrillation history Jhonatan Vasc score three Patient has a history of atrial fibrillation, does not take any anticoagulants for that Current EKG sinus rhythm Patient stated that she did take an anticoagulant once, but it made her very dizzy and upset her stomach and she did not want to take anything for it as she feels it is well controlled BNP is 2456, Echo showed LVEF of 70% with mildly dilated RV, PASP of 31 mm Hg, mild mitral regurgitation and trace tricuspid regurgitation. Continue telemetry monitoring Chronic constipation Patient stated that she developed constipation after taking pain medications for her rheumatoid arthritis She takes senna for her constipation regularly Bowel care in place History of hypothyroidism Patient states that she has a history of hypothyroidism, but stopped taking medications as it was controlled TSH is normal-4.22 Moderate malnutrition BMI 19.4kg/m2, albumin 3.[address] History of recurrent falls Fall precautions in place History of depression Patient normally uses estradiol patch, continue once med rec is done Code Status: DNR DVT Prophylaxis: SCDs Analgesia/Sedation: Morphine/[place] Lines/Tubes: PIV Nutrition: NPO PT:yes Prognosis: Guarded Disposition: Patient is getting exploratory laparotomy today by Dr. Nunn, PT eval and DC plan Resident MD attestation: The patient note has been reviewed and supervised by senior residents PGY-2/ PGY-3. Patient was seen, examined and discussed with attending physician. Juan Hernandez MD Internal Medicine resident, PGY-1 Date of Service: Jul 12, 2025 Billing Provider: MELANIE LOPEZ MD, PREETHI, RES Jul 12, 2025 10:41
--- NOTE | 2025-07-12 11:01 | RADIOLOGY REPORT ---
CHEST RADIOGRAPH Indication: NG TUBE PLACEMENT Technique: Single frontal view of the chest was obtained Comparison: None FINDINGS: Lines and Tubes: The enteric tube terminates in the stomach. The endotracheal tube terminates 2.4 cm above the dawson. Lungs: No focal consolidation. Pleura: No effusion. No pneumothorax. Cardiomediastinal contours: Unremarkable Bones: No acute osseous abnormality. Soft tissues: Calcified breast implants noted. IMPRESSION: 1. Enteric tube terminates in the stomach.
[2025-07-12 11:30] LABS: LEUKOCYTE ESTERASE ,URINE NEGATIVE (Neg); NITRITES, URINE NEGATIVE (Neg); OCCULT BLOOD,URINE SMALL (Neg)
[2025-07-12 11:31] LABS: UA COLLECTION TYPE FOLEY CATH
[2025-07-12 11:39] LABS: MUCUS STRANDS NONE SEEN /LPF (Neg); RENAL CELLS, URINE FEW /HPF; SQUAMOUS EPITHELIAL CELL,UR NONE SEEN /LPF (FEW)
[2025-07-12 11:47] LABS: CREATININE,URINE RANDOM 27.0 MG/DL; TOTAL PROTEIN,URINE RANDOM 17.7 MG/DL
[2025-07-12 12:31] LABS: OSMOLALITY UA 570.0 MOSM/K (50-1400)
[2025-07-12 14:33] LABS: APTT 25 SECONDS (22-32); INR 1.2 INR
--- NOTE | 2025-07-12 18:01 | CARDIOLOGY REPORT ---
APPROVED REPORT EXAM: Comprehensive 2D, Doppler, and color-flow Echocardiogram. Patient Location: [address] Blood Pressure: 129/74 mmHg Heart Rate: 74 bpm Rhythm: 69 Indications Arrhythmia Hx of Atrial Fibrillation Hx of Chronic Bowel Obstructions (3 surgeries) Autistic Teacher: None Previous echo: None 2D Dimensions RVDd 3.5 cm LA Diam 3.8 cm IVSd 0.9 (0.7-1.1cm) LVDd 3.7 cm PWd 0.9 (0.7-1.1cm) IVSs 1.3 (0.8-1.2cm) RA Minor 3.6 cm LVDs 2.2 (2.5-4.0cm) Aortic Root(2D) 3.0 cm PWs 1.2 (0.8-1.2cm) LVOT Diameter 1.93 (1.8-2.4cm) LVEF(%) 70.7 (>50%) Ao Asc Diam. 3.18 cm FS (%) 39.3 % SV 40.0 ml CO 3.0 L/min M-Mode Dimensions IVSd 1.02 (0.7-1.1cm) LVDd 3.58 (4.0-5.6cm) PWd 1.02 (0.7-1.1cm) IVSs 1.22 cm MV EPSS 0.5 (<0.5cm) LVDs 2.05 (2.0-3.8cm) FS (%) 43 % PWs 1.25 cm ESV(Teich) 13.5 ml LVEF(%) 75 (>50%) Aortic Valve AoV Peak Dariel. 125.0 cm/s AoV VTI 23.5 cm AO Peak GR. 6.2 mmHg AO Mean GR. 3 mmHg LVOT VTI 20.70 cm LVOT Peak Dariel. 110.0 cm/s DARÍO(VTI)/BSA 2.57 cm2/m2 DARÍO (VTI) 2.57 cm2 AV DI 0.88 % Mitral Valve MV E Velocity 66.3 cm/s MV Peak Gr. 3 mmHg MV DECEL TIME 244 ms MV A Velocity 81.4 cm/s MV Mean Gr. 1 mmHg MV PHT 60 ms E/A Ratio 0.8 MVA (PHT) 3.67 cm2 MV VMax 88.7 cm/s MV VMean 55.9 cm/s MV VTI 23.7 cm Tricuspid Valve TR P. Velocity 230 cm/s RAP ESTIMATE 10 mmHg TR Peak Gr. 21 mmHg RVSP 31 mmHg LEFT VENTRICLE Normal LV size and wall thickness. Overall systolic function is normal. Overall LVEF is 70%. RIGHT VENTRICLE Right ventricle is mildly dilated with normal function. Estimated PA systolic pressure is 31 mmHg. ATRIA The left atrium size is normal. The right atrium size is normal. AORTIC VALVE Trileaflet AV appears sclerotic without stenosis or insufficiency. MITRAL VALVE Mild MV annular calcification without stenosis. Trace to mild regurgitation. TRICUSPID VALVE TV appears structurally normal with trace regurgitation. PULMONIC VALVE Normal PV without stenosis, physiologic insufficiency. GREAT VESSELS The aortic root is normal in size. IVC is not well visualized. PERICARDIUM Normal pericardium. No pericardial effusion seen. Other Information Study Quality: Fair. TDS due to patients breast implants. Patient was in great pain. Conclusion Normal LV size and wall thickness. Overall systolic function is normal. Overall LVEF is 70%. Right ventricle is mildly dilated with normal function. Estimated PA systolic pressure is 31 mmHg. The left atrium size is normal. The right atrium size is normal. Trileaflet AV appears sclerotic without stenosis or insufficiency. Mild MV annular calcification without stenosis. Trace to mild regurgitation. TV appears structurally normal with trace regurgitation. Normal pericardium. No pericardial effusion seen.
[2025-07-12] MEDS: ketorolac trometh 15mg/ml vial 15 MG/ML ML IV ONE (20:09)
[2025-07-13 02:00] VITALS: BP 115/61; PULSE 68; RESP 16; TEMP 97.3; O2SAT 96
[2025-07-13 05:45] LABS: MEAN PLATELET VOLUME 7.9 FL (7.4-10.4); RED CELL DISTRIBUTION WIDTH 15.0 % (11.5-14.5)
[2025-07-13 06:00] VITALS: BP 122/65; PULSE 70; RESP 12; TEMP 97.8; O2SAT 100
[2025-07-13 06:08] LABS: CREATININE 1.03 MG/DL (0.40-0.90); TOTAL CARBON DIOXIDE 26.6 MMOL/L (24-32); eCRCL 30 ML/MIN; eGFR 51 ML/MIN
[2025-07-13 06:11] LABS: LYMPHOCYTES % (MANUAL) 7.0 % (21-51); MONOCYTES % (MANUAL) 17.0 % (2-12); NEUTROPHILS % (MANUAL) 76.0 % (42-75); PLATELET ESTIMATE NORMAL
[2025-07-13] MEDS: pantoprazole 40mg Tablet.DR PO SCH (07:38)
[2025-07-13 10:00] VITALS: BP 147/73; PULSE 81; RESP 10; TEMP 98.8; O2SAT 97
[2025-07-13] MEDS: morphine 4 MG/ML inj SYRINge IV PRN (13:20)
[2025-07-13 18:00] VITALS: BP 129/69; PULSE 87; RESP 15; TEMP 98; O2SAT 95
[2025-07-13] MEDS: morphine 4 MG/ML inj SYRINge IV ONE (18:49)
[2025-07-13] MEDS: morphine/NS PCA 1mg/ml 50ml 50 ML IV SCH (19:00)
--- NOTE | 2025-07-13 19:26 | PROGRESS NOTE ---
Progress Note Dictate Providers to CC ~ Progress Note: Subsequent surgical care on an 85-year-old woman who is postoperative day 1, status post exploratory laparotomy with lysis of adhesions for a recurrent small bowel obstruction Complaining of severe pain Patient only receiving intermittent PRN IV pain medication Does not endorse any flatus Minimal output from the nasogastric tube wishes functioning very well and Midline incision dressed and dry Abdomen soft but tender Continue nasogastric tube until passing flatus DIET KITCHEN COOK and IV morphine ordered x1 now Anticipate return of bowel function in the next 24-48 hours Antibiotic Ordered?: No Objective Vitals Vital Signs Date Time Temp Pulse Resp B/P (MAP) Pulse Ox O2 Delivery O2 Flow Rate FiO2 07/13/25 18:49 15 07/13/25 18:00 98.0 87 129/69 (89) 95 Room Air 07/13/25 08:00 0.0 Lab Results: 07/13/25 0522 07/13/25 0522 Coagulation Studies Laboratory Tests Test 07/12/25 13:55 Prothrombin Time 11.7 SECONDS (9.0-12.0) INR International Normalized Ratio 1.2 INR Activated Partial Thromboplast Time 25 SECONDS (22-32) Coagulation Comments Problem\Assessment\Plan Problems/Diagnosis: (1) Small bowel obstruction TIFFANIE GALEANA MD Jul 13, 2025 19:26
[2025-07-13] MEDS ORDERED: enoxaparin 40mg/0.4ml syringe SUBCUT SCH (20:00)
[2025-07-13 22:00] VITALS: BP 142/73; PULSE 81; RESP 13; TEMP 97.2; O2SAT 96
[2025-07-13] MEDS: enoxaparin 30mg/0.3ml syringe SUBCUT SCH (22:06)
--- NOTE | 2025-07-13 22:08 | PROGRESS NOTE- Residence ---
Progress Note - Resident Providers to CC Resident Creating Document: JUAN HERNANDEZ RES ~ Antibiotic Timeout Antibiotic Ordered?: No Subjective Patient underwent exploratory laparotomy with lysis of adhesions by Dr. Nunn. She complains of severe abdominal pain, with no vomiting. She has nausea. There is minimal output from the NG tube. Denies fever, chills Objective Vital Signs Date Time Temp Pulse Resp B/P (MAP) Pulse Ox O2 Delivery O2 Flow Rate FiO2 07/13/25 20:11 16 07/13/25 18:00 98.0 87 129/69 (89) 95 Room Air 07/13/25 08:00 0.0 Result Diagram: 07/13/2552107/13/25521 Awake , alert, and oriented x4, malnourished, in mild distress HEENT: Atraumatic, normocephalic, EOMI, anicteric sclera ; pink conjunctiva, dry mucous membranes Neck: Trachea midline. Supple, full range of motion, no JVD Cardiac: Regular rhythm, regular rate with no murmurs all over the precordium, bilateral breast implants present Respiratory: Equal breath sounds bilaterally, no tachypnea, no wheezing ,rub or rales, Chest wall is symmetric and without deformity. Gastrointestinal: Abdomen non-distended, soft, diffuse abdominal tenderness present, no guarding, rigidity, bowel sounds normal, abdominal surgical scar noted Musculoskeletal: Scoliosis noted, extremely deformed rheumatoid bilateral upper extremities, knees and bilateral toes, severe scaling noted on bilateral lower extremity, onychomycosis noted on all toes, no pitting edema, peripheral pulsations are intact on both sides Neurological: Speech is clear, alert, and oriented x 4. No motor or sensory deficit, deep tendon reflexes normal, cerebellar intact. Cranial nerves II-XII intact. Skin: Warm and dry Coagulation Studies Laboratory Tests Test 07/12/25 13:55 Prothrombin Time 11.7 SECONDS (9.0-12.0) INR International Normalized Ratio 1.2 INR Activated Partial Thromboplast Time 25 SECONDS (22-32) Coagulation Comments Assessment Assessment 85-year-old female with history of recurrent small-bowel obstructions, partial bowel resection, severe rheumatoid arthritis transferred from [facility] for further evaluation of current episode of small-bowel obstruction. Plan Plan Small-bowel obstruction-NG tube in place draining bilious fluid Recurrent small-bowel obstruction s/p bowel resection post polyp of 2 cm in 1959 Patient had chief complaints of abdominal pain, the patient in the epigastric region and diffuse abdominal pain throughout and had multiple episodes of bilious emesis CT scan as per [facility]: Small-bowel obstruction not extensive, small amount of free fluid in the pelvis, moderate constipation As per patient, the pain/discomfort decreased post NG tube placement([facility]) Her abdomen on palpation did not seem rigid, no bowel sounds were appreciated on auscultation. Did not consult surgeon as this time, because of the moderate severity of SBO and relief post NG tube placement Lactic acid, potassium within normal limits Plan NPO, NG tube in place CTA abdomen pelvis with oral contrast has been ordered Please consult surgeon in am Initiated the patient on fluids normal saline 100 mL/hour 07/11/25 No further vomiting episodes, patient is nauseous and abdomen pain slightly reduced to severity of 7/10 NG tube drained 500 mL bilious fluid Hypoactive bowel sounds heard Diffuse abdominal tenderness present with no rigidity Patient is allergic to contrast, hence prednisone 50 mg and Benadryl 50 mg was given abdomen/pelvis CT with oral contrast Abdomen/pelvis CT with oral contrast shows multiple loops of abnormally dilated small bowel up to 4.5 cm with air-fluid levels and luminal narrowing in the right lower quadrant suggesting partial small bowel obstruction, possibly partial high-grade SBO. -small amount of contrast seen within the distal small bowel loops which are nondistended as well as the proximal colon -mesenteric edema and small amount of ascites fluid which may be secondary to the underlying small bowel obstruction -large volume stool in the colon Continue NS at 100 mL/hour, BNP elevated-2456, follow up echo and adjust fluids Total bilirubin is 1.4, follow up direct bilirubin Continue IV Zofran 4 mg q.6h p.r.n. Surgery, Dr. Nunn was consulted and awaiting recommendations 07/12/25 NG tube drained 500 mL of dark bilious fluid Patient complains of moderate abdominal pain and nausea, no vomiting episodes, no fever, chills Total bilirubin is 1.5, diet bilirubin is 0.3- indirect hyperbilirubinemia, most probably due to stress She is scheduled for surgery today by Dr. Nunn-exploratory laparotomy with possible partial bowel resection Reduced rate of NS to 50 mL/hour due to elevated BNP of 2456, although patient is not fluid overloaded 07/13/25 Post op day-1 She underwent exploratory laparotomy with lysis of adhesions by Dr. Nunn She has severe abdominal pain, complains of nausea Minimal drainage from NG tube Surgical site shows no erythema, warmth or discharge She did not pass flatus Pain meds in place Monitor bowel movements Severe Rheumatoid arthritis Patient is on biological Xeljanz XR (tofacitinib) Patient also takes tramadol for her pain Pain medications in place Started IV acetaminophen, we will continue home meds after resolution of SBO Atrial fibrillation history Jhonatan Vasc score three Patient has a history of atrial fibrillation, does not take any anticoagulants for that Current EKG sinus rhythm Patient stated that she did take an anticoagulant once, but it made her very dizzy and upset her stomach and she did not want to take anything for it as she feels it is well controlled BNP is 2456, Echo showed LVEF of 70% with mildly dilated RV, PASP of 31 mm Hg, mild mitral regurgitation and trace tricuspid regurgitation. Continue telemetry monitoring Chronic constipation Patient stated that she developed constipation after taking pain medications for her rheumatoid arthritis She takes senna for her constipation regularly Bowel care in place History of hypothyroidism Patient states that she has a history of hypothyroidism, but stopped taking medications as it was controlled TSH is normal-4.22 Moderate malnutrition BMI 19.4kg/m2, albumin 3.[address] History of recurrent falls Fall precautions in place History of depression Patient normally uses estradiol patch, continue once med rec is done Code Status: DNR DVT Prophylaxis: SCDs Analgesia/Sedation: Morphine/[place] Lines/Tubes: PIV Nutrition: NPO PT:yes Prognosis: Guarded Disposition: Postop day 1, Exploratory laparotomy with lysis of adhesions by Dr. Nunn, monitor bowel movements, PT eval and DC plan Resident attestation: The patient note has been reviewed and supervised by senior residents PGY-2/ PGY-3. Patient was seen, examined and discussed with attending physician. Juan Hernandez MD Internal Medicine resident, PGY-1 Date of Service: Jul 13, 2025 Billing Provider: MELANIE LOPEZ MD,JUAN, RES Jul 13, 2025 22:08
[2025-07-14 06:00] VITALS: BP 162/87; PULSE 91; RESP 15; TEMP 98; O2SAT 93
[2025-07-14 06:23] LABS: MEAN PLATELET VOLUME 8.3 FL (7.4-10.4); RED CELL DISTRIBUTION WIDTH 15.2 % (11.5-14.5)
[2025-07-14 07:04] LABS: CREATININE 0.91 MG/DL (0.40-0.90); TOTAL CARBON DIOXIDE 22.5 MMOL/L (24-32); eCRCL 34 ML/MIN; eGFR 59 ML/MIN
[2025-07-14] MEDS ORDERED: dextrose 50%-water 50ml dispensing syringe IV PRN (07:20)
[2025-07-14] MEDS ORDERED: glucagon, human recombinant 1mg kit SUBCUT PRN (07:20)
[2025-07-14] MEDS: DEXTROSE 15 GM of carb/4 tabs (each vial/BOTTLE has 4 tablets) PO PRN (07:26)
[2025-07-14 10:00] VITALS: BP 138/83; PULSE 115; RESP 21; TEMP 98; O2SAT 93
--- NOTE | 2025-07-14 10:04 | PROGRESS NOTE- Residence ---
Progress Note - Resident Providers to CC Resident Creating Document: JUAN HERNANDEZ RES ~ Antibiotic Timeout Antibiotic Ordered?: No Subjective Patient underwent exploratory laparotomy with lysis of adhesions by Dr. Nunn. Today is postop day 2. She complains of severe abdominal pain, with no vomiting. She did not pass flatus. She has nausea. 600 mL was drained from NG tube in last 12 hours. Denies fever, chills Objective Vital Signs Date Time Temp Pulse Resp B/P (MAP) Pulse Ox O2 Delivery O2 Flow Rate FiO2 07/14/25 07:31 14 07/14/25 06:00 98.0 91 162/87 (112) 93 Room Air 07/13/25 20:00 0.0 Result Diagram: 07/14/25 0533 07/14/25 0533 Awake , alert, and oriented x4, malnourished, in mild distress HEENT: Atraumatic, normocephalic, EOMI, anicteric sclera ; pink conjunctiva Neck: Trachea midline. Supple, full range of motion, no JVD Cardiac: Regular rhythm, regular rate with no murmurs all over the precordium, bilateral breast implants present Respiratory: Equal breath sounds bilaterally, no tachypnea, no wheezing ,rub or rales, Chest wall is symmetric and without deformity. Gastrointestinal: Abdomen non-distended, soft, diffuse abdominal tenderness present, no guarding, rigidity, bowel sounds normal, abdominal surgical scar noted Musculoskeletal: Scoliosis noted, extremely deformed rheumatoid bilateral upper extremities, knees and bilateral toes, severe scaling noted on bilateral lower extremity, onychomycosis noted on all toes, no pitting edema, peripheral pulsations are intact on both sides Neurological: Speech is clear, alert, and oriented x 4. No motor or sensory deficit, deep tendon reflexes normal, cerebellar intact. Cranial nerves II-XII intact. Skin: Warm and dry Coagulation Studies Laboratory Tests Test 07/12/25 13:55 Prothrombin Time 11.7 SECONDS (9.0-12.0) INR International Normalized Ratio 1.2 INR Activated Partial Thromboplast Time 25 SECONDS (22-32) Coagulation Comments Assessment Assessment 85-year-old female with history of recurrent small-bowel obstructions, partial bowel resection, severe rheumatoid arthritis transferred from [facility] for further evaluation of current episode of small-bowel obstruction. Plan Plan Small-bowel obstruction s/p exploratory laparotomy with lysis of adhesions by Dr. Nunn - 07/12/25 Recurrent small-bowel obstruction s/p bowel resection post polyp of 2 cm in 1959 Patient had chief complaints of abdominal pain, the patient in the epigastric region and diffuse abdominal pain throughout and had multiple episodes of bilious emesis CT scan as per [facility]: Small-bowel obstruction not extensive, small amount of free fluid in the pelvis, moderate constipation As per patient, the pain/discomfort decreased post NG tube placement([facility]) Her abdomen on palpation did not seem rigid, no bowel sounds were appreciated on auscultation. Did not consult surgeon as this time, because of the moderate severity of SBO and relief post NG tube placement Lactic acid, potassium within normal limits Plan NPO, NG tube in place CTA abdomen pelvis with oral contrast has been ordered Please consult surgeon in am Initiated the patient on fluids normal saline 100 mL/hour 07/11/25 No further vomiting episodes, patient is nauseous and abdomen pain slightly reduced to severity of 7/10 NG tube drained 500 mL bilious fluid Hypoactive bowel sounds heard Diffuse abdominal tenderness present with no rigidity Patient is allergic to contrast, hence prednisone 50 mg and Benadryl 50 mg was given abdomen/pelvis CT with oral contrast Abdomen/pelvis CT with oral contrast shows multiple loops of abnormally dilated small bowel up to 4.5 cm with air-fluid levels and luminal narrowing in the right lower quadrant suggesting partial small bowel obstruction, possibly partial high-grade SBO. -small amount of contrast seen within the distal small bowel loops which are nondistended as well as the proximal colon -mesenteric edema and small amount of ascites fluid which may be secondary to the underlying small bowel obstruction -large volume stool in the colon Continue NS at 100 mL/hour, BNP elevated-2456, follow up echo and adjust fluids Total bilirubin is 1.4, follow up direct bilirubin Continue IV Zofran 4 mg q.6h p.r.n. Surgery, Dr. Nunn was consulted and awaiting recommendations 07/12/25 NG tube drained 500 mL of dark bilious fluid Patient complains of moderate abdominal pain and nausea, no vomiting episodes, no fever, chills Total bilirubin is 1.5, diet bilirubin is 0.3- indirect hyperbilirubinemia, most probably due to stress She is scheduled for surgery today by Dr. Nunn-exploratory laparotomy with possible partial bowel resection Reduced rate of NS to 50 mL/hour due to elevated BNP of 2456, although patient is not fluid overloaded 07/13/25 Post op day-1 She underwent exploratory laparotomy with lysis of adhesions by Dr. Nunn She has severe abdominal pain, complains of nausea Minimal drainage from NG tube Surgical site shows no erythema, warmth or discharge She did not pass flatus Pain meds in place Monitor bowel movements 07/14/25 Postop day 2 Patient complains abdominal pain of severity 8/10, pain meds in place 600 mL drained from NG tube in past 12 hours She is on clear liquid diet She did not pass flatus Surgical site shows no erythema or discharge Monitor bowel movements Glucose is 47-started hypoglycemia protocol Monitor glucose Severe Rheumatoid arthritis Patient is on biological Xeljanz XR (tofacitinib) Patient also takes tramadol for her pain Pain medications in place Started IV acetaminophen, we will continue home meds after advancing diet Atrial fibrillation history Jhonatan Vasc score three Patient has a history of atrial fibrillation, does not take any anticoagulants for that Current EKG sinus rhythm Patient stated that she did take an anticoagulant once, but it made her very dizzy and upset her stomach and she did not want to take anything for it as she feels it is well controlled BNP is 2456, Echo showed LVEF of 70% with mildly dilated RV, PASP of 31 mm Hg, mild mitral regurgitation and trace tricuspid regurgitation. Continue telemetry monitoring Chronic constipation Patient stated that she developed constipation after taking pain medications for her rheumatoid arthritis She takes senna for her constipation regularly Bowel care in place History of hypothyroidism Patient states that she has a history of hypothyroidism, but stopped taking medications as it was controlled TSH is normal-4.22 Moderate malnutrition BMI 19.4kg/m2, albumin 3.[address] History of recurrent falls Fall precautions in place History of depression Patient normally uses estradiol patch, continue once med rec is done Code Status: DNR DVT Prophylaxis: SCDs Analgesia/Sedation: Morphine/[place] Lines/Tubes: PIV Nutrition: NPO PT:yes Prognosis: Guarded Disposition: Postop day 2, s/p Exploratory laparotomy with lysis of adhesions by Dr. Nunn, monitor bowel movements, PT eval and DC plan Resident attestation: The patient note has been reviewed and supervised by senior residents PGY-2/ PGY-3. Patient was seen, examined and discussed with attending physician. Juan Hernandez MD Internal Medicine resident, PGY-1 Date of Service: Jul 14, 2025 Billing Provider: MELANIE LOPEZ MD,JUAN, RES Jul 14, 2025 10:04
[2025-07-14 11:34] VITALS: RESP 20; O2SAT 95
[2025-07-14] MEDS: INSULIN LISPRO 100 UNIT/ML INSULN.PEN MULTI-DOSE SQ SCH (12:00)
--- NOTE | 2025-07-14 13:52 | RADIOLOGY REPORT ---
Date: 07/14/2025 12:25 PM Examination: DI ABDOMEN,SINGLE VIEW(KUB) History: small bowel obstruction Comparison: CT CT ABDOMEN PELVIS W/ ORAL CONTRAST on DOS: 07/11/25, XR ABDOMEN 1 VIEW on DOS: 07/10/25, CT ABDOMEN AND PELVIS W/O CONTRAST on DOS: 07/10/25 TECHNIQUE: Frontal views of the abdomen was obtained. FINDINGS: Bowel gas pattern is unremarkable. NG tube tip in the stomach. Surgical skin shy are present The lung bases are unremarkable. No acute osseous abnormality identified. IMPRESSION: Nonobstructive bowel gas pattern. Large stool burden
[2025-07-14 18:00] VITALS: BP 142/82; PULSE 95; RESP 16; TEMP 97.5; O2SAT 96
[2025-07-14 22:00] VITALS: BP 133/87; PULSE 112; RESP 12; TEMP 97.1; O2SAT 95
--- NOTE | 2025-07-14 23:15 | PROGRESS NOTE ---
Progress Note Dictate Providers to CC ~ Progress Note: Subsequent surgical care on an 85-year-old woman who is postoperative day 2, status post exploratory laparotomy with lysis of adhesions for a recurrent small bowel obstruction Pain better controlled She still does not endorse any flatus Persistent bilious output Midline incision clean dry and intact Abdomen somewhat distended Continue nasogastric tube until passing flatus [employer] and IV morphine ordered x1 now Anticipate return of bowel function in the next 24-48 hours Antibiotic Ordered?: No Objective Vitals Vital Signs Date Time Temp Pulse Resp B/P (MAP) Pulse Ox O2 Delivery O2 Flow Rate FiO2 07/14/25 20:49 14 07/14/25 11:34 95 Room Air 07/14/25 10:00 98.0 115 138/83 (101) 07/13/25 20:00 0.0 Lab Results: 07/14/25 0533 07/14/25 0533 Coagulation Studies Laboratory Tests Test 07/12/25 13:55 Prothrombin Time 11.7 SECONDS (9.0-12.0) INR International Normalized Ratio 1.2 INR Activated Partial Thromboplast Time 25 SECONDS (22-32) Coagulation Comments Problem\Assessment\Plan Problems/Diagnosis: (1) Small bowel obstruction TIFFANIE GALEANA MD Jul 14, 2025 23:14
[2025-07-15 06:00] VITALS: BP 137/74; PULSE 94; RESP 12; TEMP 97.2; O2SAT 98
[2025-07-15 06:35] LABS: MEAN PLATELET VOLUME 8.2 FL (7.4-10.4); RED CELL DISTRIBUTION WIDTH 15.1 % (11.5-14.5)
[2025-07-15 06:52] LABS: CREATININE 0.90 MG/DL (0.40-0.90); TOTAL CARBON DIOXIDE 25.2 MMOL/L (24-32); eCRCL 34 ML/MIN; eGFR 59 ML/MIN
[2025-07-15 09:40] LABS: EOSINOPHILS % (MANUAL) 1.0 % (0-6); LYMPHOCYTES % (MANUAL) 10.0 % (21-51); MONOCYTES % (MANUAL) 10.0 % (2-12); NEUTROPHILS % (MANUAL) 79.0 % (42-75); PLATELET ESTIMATE NORMAL
[2025-07-15] MEDS: methylnaltrexone br 12mg/0.6ml inj***SubQ only SQ ONE (11:13)
[2025-07-15 11:22] VITALS: BP 111/57; PULSE 95; RESP 18; TEMP 97.9; O2SAT 95
[2025-07-15] MEDS: PCA WASTE DOCUMENTATION 1 MG ML MC SCH ×2 (16:36→23:14)
--- NOTE | 2025-07-15 17:22 | PROGRESS NOTE- Residence ---
Progress Note - Resident Providers to CC Resident Creating Document: JUAN HERNANDEZ RES ~ Antibiotic Timeout Antibiotic Ordered?: No Subjective Patient underwent exploratory laparotomy with lysis of adhesions for SBO by Dr. Nunn. Today is postop day 3. She is drowsy and complains of severe abdominal pain while awake. She did not pass flatus. She has nausea. 450 mL was drained from NG tube in last 12 hours. She has decreased intake of clear liquid diet. She denies fever, chills. Objective Vital Signs Date Time Temp Pulse Resp B/P (MAP) Pulse Ox O2 Delivery O2 Flow Rate FiO2 07/15/25 17:00 18 07/15/25 11:22 97.9 95 111/57 (75) 95 Room Air 07/15/25 08:44 0.0 Result Diagram: 07/15/25 0545 07/15/25 0545 Awake , alert, and oriented x4, malnourished, in mild distress HEENT: Atraumatic, normocephalic, EOMI, anicteric sclera ; pink conjunctiva Neck: Trachea midline. Supple, full range of motion, no JVD Cardiac: Regular rhythm, regular rate with no murmurs all over the precordium, bilateral breast implants present Respiratory: Equal breath sounds bilaterally, no tachypnea, no wheezing ,rub or rales, Chest wall is symmetric and without deformity. Gastrointestinal: Midline incision clean and dry, Abdomen mildly distended, soft, diffuse abdominal tenderness present, no guarding, rigidity, sluggish hypoactive bowel sounds heard Musculoskeletal: Scoliosis noted, extremely deformed rheumatoid bilateral upper extremities, knees and bilateral toes, severe scaling noted on bilateral lower extremity, onychomycosis noted on all toes, no pitting edema, peripheral pulsations are intact on both sides Neurological: Speech is clear, alert, and oriented x 4. No motor or sensory deficit, deep tendon reflexes normal, cerebellar intact. Cranial nerves II-XII intact. Skin: Warm and dry Coagulation Studies Laboratory Tests Test 07/12/25 13:55 Prothrombin Time 11.7 SECONDS (9.0-12.0) INR International Normalized Ratio 1.2 INR Activated Partial Thromboplast Time 25 SECONDS (22-32) Coagulation Comments Assessment Assessment 85-year-old female with history of recurrent small-bowel obstructions, partial bowel resection, severe rheumatoid arthritis transferred from [facility] for further evaluation of current episode of small-bowel obstruction. Plan Plan Small-bowel obstruction s/p exploratory laparotomy with lysis of adhesions by Dr. Nunn - 07/12/25 Recurrent small-bowel obstruction s/p bowel resection post polyp of 2 cm in 1959 Patient had chief complaints of abdominal pain, the patient in the epigastric region and diffuse abdominal pain throughout and had multiple episodes of bilious emesis CT scan as per [facility]: Small-bowel obstruction not extensive, small amount of free fluid in the pelvis, moderate constipation As per patient, the pain/discomfort decreased post NG tube placement([facility]) Her abdomen on palpation did not seem rigid, no bowel sounds were appreciated on auscultation. Did not consult surgeon as this time, because of the moderate severity of SBO and relief post NG tube placement Lactic acid, potassium within normal limits Plan NPO, NG tube in place CTA abdomen pelvis with oral contrast has been ordered Please consult surgeon in am Initiated the patient on fluids normal saline 100 mL/hour 07/11/25 No further vomiting episodes, patient is nauseous and abdomen pain slightly reduced to severity of 7/10 NG tube drained 500 mL bilious fluid Hypoactive bowel sounds heard Diffuse abdominal tenderness present with no rigidity Patient is allergic to contrast, hence prednisone 50 mg and Benadryl 50 mg was given abdomen/pelvis CT with oral contrast Abdomen/pelvis CT with oral contrast shows multiple loops of abnormally dilated small bowel up to 4.5 cm with air-fluid levels and luminal narrowing in the right lower quadrant suggesting partial small bowel obstruction, possibly partial high-grade SBO. -small amount of contrast seen within the distal small bowel loops which are nondistended as well as the proximal colon -mesenteric edema and small amount of ascites fluid which may be secondary to the underlying small bowel obstruction -large volume stool in the colon Continue NS at 100 mL/hour, BNP elevated-2456, follow up echo and adjust fluids Total bilirubin is 1.4, follow up direct bilirubin Continue IV Zofran 4 mg q.6h p.r.n. Surgery, Dr. Nunn was consulted and awaiting recommendations 07/12/25 NG tube drained 500 mL of dark bilious fluid Patient complains of moderate abdominal pain and nausea, no vomiting episodes, no fever, chills Total bilirubin is 1.5, diet bilirubin is 0.3- indirect hyperbilirubinemia, most probably due to stress She is scheduled for surgery today by Dr. Nunn-exploratory laparotomy with possible partial bowel resection Reduced rate of NS to 50 mL/hour due to elevated BNP of 2456, although patient is not fluid overloaded 07/13/25 Post op day-1 She underwent exploratory laparotomy with lysis of adhesions by Dr. Nunn She has severe abdominal pain, complains of nausea Minimal drainage from NG tube Surgical site shows no erythema, warmth or discharge She did not pass flatus Pain meds in place Monitor bowel movements 07/14/25 Postop day 2 Patient complains abdominal pain of severity 8/10, pain meds in place 600 mL drained from NG tube in past 12 hours She is on clear liquid diet She did not pass flatus Surgical site shows no erythema or discharge Monitor bowel movements Glucose is 47-started hypoglycemia protocol Monitor glucose 07/15/25 Postop day 3 Patient is drowsy and complaints of abdominal pain while awake, pain management with PCP pump, morphine and tramadol She has low pain threshold and opioid habituation 450 ml drained from NG tube in past 12 hours She did not pass flatus Clear liquid diet Surgical site shows no erythema or discharge Glucose is 82 Severe Rheumatoid arthritis Patient is on biological Xeljanz XR (tofacitinib) Patient also takes tramadol for her pain Pain medications in place Atrial fibrillation history, Jhonatan Vasc score three Patient has a history of atrial fibrillation, does not take any anticoagulants for that Current EKG sinus rhythm Patient stated that she did take an anticoagulant once, but it made her very dizzy and upset her stomach and she did not want to take anything for it as she feels it is well controlled BNP is 2456, Echo showed LVEF of 70% with mildly dilated RV, PASP of 31 mm Hg, mild mitral regurgitation and trace tricuspid regurgitation. Continue telemetry monitoring Chronic constipation Patient stated that she developed constipation after taking pain medications for her rheumatoid arthritis She takes senna for her constipation regularly Bowel care in place History of hypothyroidism Patient states that she has a history of hypothyroidism, but stopped taking medications as it was controlled TSH is normal-4.22 Moderate malnutrition BMI 19.4kg/m2, albumin 3.[address] History of recurrent falls Fall precautions in place History of depression Patient normally uses estradiol patch, continue once med rec is done Code Status: DNR DVT Prophylaxis: SCDs Analgesia/Sedation: Morphine/[place] Lines/Tubes: PIV Nutrition: Clear liquid diet PT:yes Prognosis: Guarded Disposition: Postop day 3, s/p Exploratory laparotomy with lysis of adhesions by Dr. Nunn, monitor bowel movements, PT eval and DC plan Resident MD attestation: The patient note has been reviewed and supervised by senior residents PGY-2/ PGY-3. Patient was seen, examined and discussed with attending physician. Juan Hernandez MD Internal Medicine resident, PGY-1 Date of Service: Jul 15, 2025 Billing Provider: MELANIE LOPEZ MD,JUAN, RES Jul 15, 2025 17:22
[2025-07-15 18:00] VITALS: BP 121/68; PULSE 81; RESP 16; TEMP 98; O2SAT 95
--- NOTE | 2025-07-15 20:02 | PROGRESS NOTE ---
Progress Note Dictate Providers to CC ~ Progress Note: Subsequent surgical care on an 85-year-old woman who is postoperative day 3, status post exploratory laparotomy with lysis of adhesions for a recurrent small bowel obstruction Pain better controlled She not passing any flatus States she can only pass flatus when she has three senna tablets She states she had a little bit of nausea earlier in the day Patient accidentally removed her nasogastric tube Midline incision clean dry and intact Abdomen less distended today Three senna tablets Tramadol q.4 hours p.r.n. pain Clear liquid diet Antibiotic Ordered?: No Objective Vitals Vital Signs Date Time Temp Pulse Resp B/P (MAP) Pulse Ox O2 Delivery O2 Flow Rate FiO2 07/15/25 19:00 14 07/15/25 11:22 97.9 95 111/57 (75) 95 Room Air 07/15/25 08:44 0.0 Lab Results: 07/15/25 0545 07/15/25 0545 Coagulation Studies Laboratory Tests Test 07/12/25 13:55 Prothrombin Time 11.7 SECONDS (9.0-12.0) INR International Normalized Ratio 1.2 INR Activated Partial Thromboplast Time 25 SECONDS (22-32) Coagulation Comments Problem\Assessment\Plan Problems/Diagnosis: (1) Small bowel obstruction TIFFANIE GALEANA MD Jul 15, 2025 20:02
[2025-07-15] MEDS: DEXTROSE 15 GM of carb/4 tabs (each vial/BOTTLE has 4 tablets) PO PRN (20:21)
[2025-07-15 22:00] VITALS: BP 98/52; PULSE 83; RESP 20; TEMP 97.1; O2SAT 97
[2025-07-15] MEDS ORDERED: PCA WASTE DOCUMENTATION 1 MG ML MC SCH (23:10)
[2025-07-16 06:00] VITALS: BP 123/62; PULSE 81; RESP 12; TEMP 98.1; O2SAT 97
[2025-07-16 06:44] LABS: MEAN PLATELET VOLUME 8.2 FL (7.4-10.4); RED CELL DISTRIBUTION WIDTH 14.6 % (11.5-14.5)
[2025-07-16 06:45] LABS: CREATININE 0.73 MG/DL (0.40-0.90); TOTAL CARBON DIOXIDE 24.9 MMOL/L (24-32); eCRCL 42 ML/MIN; eGFR 76 ML/MIN
[2025-07-16 10:00] VITALS: BP 126/78; PULSE 95; RESP 16; TEMP 97.4; O2SAT 96
[2025-07-16] MEDS ORDERED: potassium Cl 40MEQ/1/2NS 520ml 520 ML IV PRN (10:15)
[2025-07-16] MEDS: magnesium citrate 296ml oral solution PO ONE (10:15)
[2025-07-16] MEDS ORDERED: potassium Cl 20 mEq SR tablet PO PRN (10:15)
[2025-07-16] MEDS: potassium Cl 20 mEq SR tablet PO PRN (11:28)
--- NOTE | 2025-07-16 11:28 | PROGRESS NOTE- Residence ---
Progress Note - Resident Providers to CC Resident Creating Document: JUAN HERNANDEZ RES ~ Antibiotic Timeout Antibiotic Ordered?: No Subjective Patient underwent exploratory laparotomy with lysis of adhesions for SBO by Dr. Nunn. Today is postop day 4. She still complains of abdominal pain. She states that she did pass flatus. She has nausea but no vomiting. She accidentally pulled out the NG tube last night. She is on clear liquid diet. She denies fever, chills. According to the nurse, she stood up but is not walking. Sluggish, hypoactive bowel sounds present. Objective Vital Signs Date Time Temp Pulse Resp B/P (MAP) Pulse Ox O2 Delivery O2 Flow Rate FiO2 07/16/25 06:00 98.1 81 12 123/62 (82) 97 Room Air 07/15/25 08:44 0.0 Result Diagram: 07/16/258 07/16/25 045 Awake , alert, and oriented x4, malnourished, in mild distress HEENT: Atraumatic, normocephalic, EOMI, anicteric sclera ; pink conjunctiva Neck: Trachea midline. Supple, full range of motion, no JVD Cardiac: Regular rhythm, regular rate with no murmurs all over the precordium, bilateral breast implants present Respiratory: Equal breath sounds bilaterally, no tachypnea, no wheezing ,rub or rales, Chest wall is symmetric and without deformity. Gastrointestinal: Midline incision clean and dry, Abdomen mildly distended, soft, diffuse abdominal tenderness present, no guarding, rigidity, sluggish hypoactive bowel sounds heard Musculoskeletal: Scoliosis noted, extremely deformed rheumatoid bilateral upper extremities, knees and bilateral toes, severe scaling noted on bilateral lower extremity, onychomycosis noted on all toes, no pitting edema, peripheral pulsations are intact on both sides Neurological: Speech is clear, alert, and oriented x 4. No motor or sensory deficit, deep tendon reflexes normal, cerebellar intact. Cranial nerves II-XII intact. Skin: Warm and dry Coagulation Studies Laboratory Tests Test 07/12/25 13:55 Prothrombin Time 11.7 SECONDS (9.0-12.0) INR International Normalized Ratio 1.2 INR Activated Partial Thromboplast Time 25 SECONDS (22-32) Coagulation Comments Assessment Assessment 85-year-old female with history of recurrent small-bowel obstructions, partial bowel resection, severe rheumatoid arthritis transferred from [facility] for further evaluation of current episode of small-bowel obstruction. Plan Plan Small-bowel obstruction s/p exploratory laparotomy with lysis of adhesions by Dr. Nnun - 07/12/25 Recurrent small-bowel obstruction s/p bowel resection post polyp of 2 cm in 1959 Patient had chief complaints of abdominal pain, the patient in the epigastric region and diffuse abdominal pain throughout and had multiple episodes of bilious emesis CT scan as per [facility]: Small-bowel obstruction not extensive, small amount of free fluid in the pelvis, moderate constipation As per patient, the pain/discomfort decreased post NG tube placement([facility]) Her abdomen on palpation did not seem rigid, no bowel sounds were appreciated on auscultation. Did not consult surgeon as this time, because of the moderate severity of SBO and relief post NG tube placement Lactic acid, potassium within normal limits Plan NPO, NG tube in place CTA abdomen pelvis with oral contrast has been ordered Please consult surgeon in am Initiated the patient on fluids normal saline 100 mL/hour 07/11/25 No further vomiting episodes, patient is nauseous and abdomen pain slightly reduced to severity of 7/10 NG tube drained 500 mL bilious fluid Hypoactive bowel sounds heard Diffuse abdominal tenderness present with no rigidity Patient is allergic to contrast, hence prednisone 50 mg and Benadryl 50 mg was given abdomen/pelvis CT with oral contrast Abdomen/pelvis CT with oral contrast shows multiple loops of abnormally dilated small bowel up to 4.5 cm with air-fluid levels and luminal narrowing in the right lower quadrant suggesting partial small bowel obstruction, possibly partial high-grade SBO. -small amount of contrast seen within the distal small bowel loops which are nondistended as well as the proximal colon -mesenteric edema and small amount of ascites fluid which may be secondary to the underlying small bowel obstruction -large volume stool in the colon Continue NS at 100 mL/hour, BNP elevated-2456, follow up echo and adjust fluids Total bilirubin is 1.4, follow up direct bilirubin Continue IV Zofran 4 mg q.6h p.r.n. Surgery, Dr. Nunn was consulted and awaiting recommendations 07/12/25 NG tube drained 500 mL of dark bilious fluid Patient complains of moderate abdominal pain and nausea, no vomiting episodes, no fever, chills Total bilirubin is 1.5, diet bilirubin is 0.3- indirect hyperbilirubinemia, most probably due to stress She is scheduled for surgery today by Dr. Nunn-exploratory laparotomy with possible partial bowel resection Reduced rate of NS to 50 mL/hour due to elevated BNP of 2456, although patient is not fluid overloaded 07/13/25 Post op day-1 She underwent exploratory laparotomy with lysis of adhesions by Dr. Nunn She has severe abdominal pain, complains of nausea Minimal drainage from NG tube Surgical site shows no erythema, warmth or discharge She did not pass flatus Pain meds in place Monitor bowel movements 07/14/25 Postop day 2 Patient complains abdominal pain of severity 8/10, pain meds in place 600 mL drained from NG tube in past 12 hours She is on clear liquid diet She did not pass flatus Surgical site shows no erythema or discharge Monitor bowel movements Glucose is 47-started hypoglycemia protocol Monitor glucose 07/15/25 Postop day 3 Patient is drowsy and complaints of abdominal pain while awake, pain management with PCP pump, morphine and tramadol She has low pain threshold and opioid habituation 450 ml drained from NG tube in past 12 hours She did not pass flatus Clear liquid diet Surgical site shows no erythema or discharge Glucose is 82 07/16/25 Postop day 4 She still complains of abdominal pain-she has low pain threshold and opioid habituation, on tramadol q.4h p.r.n. She has no NG tube, she has nausea but no vomiting episodes On clear liquid diet She states that she did pass flatus Dressing present over surgical site with no drainage, bleeding or soakage Sluggish, hypoactive bowel sounds present Monitor for bowel movements FELECIA, less likely prerenal due to renal tubular stasis Creatinine is downtrending Monitor BMP Severe Rheumatoid arthritis Patient is on biological Xeljanz XR (tofacitinib) Patient also takes tramadol for her pain Pain medications in place-tramadol q.4h p.r.n. Atrial fibrillation history, Jhonatan Vasc score three Patient has a history of atrial fibrillation, does not take any anticoagulants for that Current EKG sinus rhythm Patient stated that she did take an anticoagulant once, but it made her very dizzy and upset her stomach and she did not want to take anything for it as she feels it is well controlled BNP is 2456, Echo showed LVEF of 70% with mildly dilated RV, PASP of 31 mm Hg, mild mitral regurgitation and trace tricuspid regurgitation. Chronic constipation Patient stated that she developed constipation after taking pain medications for her rheumatoid arthritis She takes senna for her constipation regularly Bowel care in place History of hypothyroidism Patient states that she has a history of hypothyroidism, but stopped taking medications as it was controlled TSH is normal-4.22 Moderate malnutrition BMI 19.4kg/m2, albumin 3.[address] History of recurrent falls Fall precautions in place History of depression Patient normally uses estradiol patch, continue once med rec is done Code Status: DNR DVT Prophylaxis: SCDs Analgesia/Sedation: Morphine/[place] Lines/Tubes: PIV Nutrition: Clear liquid diet PT:yes Prognosis: Guarded Disposition: Postop day 4, s/p Exploratory laparotomy with lysis of adhesions by Dr. Nunn, monitor bowel movements, PT eval and DC plan Resident attestation: The patient note has been reviewed and supervised by senior residents PGY-2/ PGY-3. Patient was seen, examined and discussed with attending physician. Juan Hernandez MD Internal Medicine resident, PGY-1 Date of Service: Jul 16, 2025 Billing Provider: MEALNIE LOPEZ MD,JUAN, RES Jul 16, 2025 11:28
--- NOTE | 2025-07-16 14:03 | RADIOLOGY REPORT ---
Date: 07/16/2025 01:25 PM Examination: DI ABDOMEN,SINGLE VIEW(KUB) History: sbo Comparison: DI ABDOMEN,SINGLE VIEW(KUB) on DOS: 07/14/25, CT CT ABDOMEN PELVIS W/ ORAL CONTRAST on DOS: 07/11/25, XR ABDOMEN 1 VIEW on DOS: 07/10/25, CT ABDOMEN AND PELVIS W/O CONTRAST on DOS: 07/10/25 TECHNIQUE: Frontal views of the abdomen was obtained. FINDINGS: Distended small and large bowel loops with a large stool burden. Interval removal of previously seen enteric tube. The lung bases are collimated from field of view. No acute osseous abnormality identified. IMPRESSION: Nonobstructive bowel gas pattern. Distended small and large bowel loops with a large stool burden. Interval removal of previously seen enteric tube.
[2025-07-16 18:00] VITALS: BP 141/78; PULSE 79; RESP 16; TEMP 97.3; O2SAT 98
[2025-07-16] MEDS: ENSURE CLEAR - 237ml PO SCH (18:02)
[2025-07-16] MEDS: K and/or MAG REPLACEMENT MC SCH (19:12)
--- NOTE | 2025-07-16 20:56 | PROGRESS NOTE ---
Progress Note Dictate Providers to CC ~ Progress Note: Subsequent surgical care on an 85-year-old woman who is postoperative day 4, status post exploratory laparotomy with lysis of adhesions for a recurrent small bowel obstruction Tolerating clear liquids Passing flatus No BM KUB shows significant colonic stool burden Midline incision clean, dry, and intact Abdomen softly distended 60 mg milk of magnesia Tramadol q.4 hours p.r.n. pain Continue Clear liquid diet Antibiotic Ordered?: N/A Objective Vitals Vital Signs Date Time Temp Pulse Resp B/P (MAP) Pulse Ox O2 Delivery O2 Flow Rate FiO2 07/16/25 10:00 97.4 95 16 126/78 (94) 96 Room Air 07/16/25 08:00 0.0 Lab Results: 07/16/25 0458 07/16/25 0455 Coagulation Studies Laboratory Tests Test 07/12/25 13:55 Prothrombin Time 11.7 SECONDS (9.0-12.0) INR International Normalized Ratio 1.2 INR Activated Partial Thromboplast Time 25 SECONDS (22-32) Coagulation Comments Problem\Assessment\Plan Problems/Diagnosis: (1) Small bowel obstruction TIFFANIE GALEANA MD Jul 16, 2025 20:56
[2025-07-16] MEDS: magnesium hydroxide 30ml (MOM) UD suspension PO ONE (21:52)
[2025-07-16 22:00] VITALS: BP 155/82; PULSE 83; RESP 14; TEMP 97.5; O2SAT 99
[2025-07-17] VITALS (7 sets, daily range): BP systolic 124–144; BP diastolic 69–89; PULSE 78; RESP 12–79; TEMP 96.9–98.2; O2SAT 94–97
[2025-07-17] MEDS: dextrose 50%-water 50ml dispensing syringe IV PRN (07:47)
[2025-07-17 09:17] LABS: MEAN PLATELET VOLUME 7.8 FL (7.4-10.4); RED CELL DISTRIBUTION WIDTH 14.5 % (11.5-14.5)
[2025-07-17 10:04] LABS: CREATININE 0.77 MG/DL (0.40-0.90); TOTAL CARBON DIOXIDE 30.1 MMOL/L (24-32); eCRCL 40 ML/MIN; eGFR 71 ML/MIN
--- NOTE | 2025-07-17 16:34 | PROGRESS NOTE ---
Progress Note Dictate Providers to CC ~ Progress Note: Subsequent surgical care on an 85-year-old woman who is postoperative day 5, status post exploratory laparotomy with lysis of adhesions for a recurrent small bowel obstruction Tolerating clear liquids Passing more flatus No BM yet, but requesting additional laxatives per home regimen KUB shows significant colonic stool burden Midline incision clean, dry, and intact Abdomen softly distended Additional laxatives ordered Regular diet Safe for discharge when she has a bowel movement Antibiotic Ordered?: No Objective Vitals Vital Signs Date Time Temp Pulse Resp B/P (MAP) Pulse Ox O2 Delivery O2 Flow Rate FiO2 07/17/25 10:00 97.4 74 135/69 (91) 96 Room Air 07/17/25 09:31 0.0 07/17/25 05:00 78 Lab Results: 07/17/25 0841 07/17/25 0841 Coagulation Studies Laboratory Tests Test 07/12/25 13:55 Prothrombin Time 11.7 SECONDS (9.0-12.0) INR International Normalized Ratio 1.2 INR Activated Partial Thromboplast Time 25 SECONDS (22-32) Coagulation Comments Problem\Assessment\Plan Problems/Diagnosis: (1) Small bowel obstruction TIFFANIE GALEANA MD Jul 17, 2025 16:34
--- NOTE | 2025-07-17 16:57 | PROGRESS NOTE- Residence ---
Progress Note - Resident Providers to CC Resident Creating Document: SHEA TREJO RES ~ Antibiotic Timeout Antibiotic Ordered?: No Subjective Patient seen examined bedside. No acute overnight symptoms. She is currently passing flatus but did not have a bowel movement. Dr. Nunn recommended discharge post bowel movement. Patient received additional doses of senna and milk of magnesia today. Objective Vital Signs Date Time Temp Pulse Resp B/P (MAP) Pulse Ox O2 Delivery O2 Flow Rate FiO2 07/17/25 10:00 97.4 74 135/69 (91) 96 Room Air 07/17/25 09:31 0.0 07/17/25 05:00 78 Result Diagram: 07/17/25 0841 07/17/25 08 Awake , alert, and oriented x4, malnourished, in no distress today HEENT: Atraumatic, normocephalic, EOMI, anicteric sclera ; pink conjunctiva Neck: Trachea midline. Supple, full range of motion, no JVD Cardiac: Regular rhythm, regular rate with no murmurs all over the precordium, bilateral breast implants present Respiratory: Equal breath sounds bilaterally, no tachypnea, no wheezing ,rub or rales, Chest wall is symmetric and without deformity. Gastrointestinal: Midline incision clean and dry, Abdomen mildly distended, soft, no abdominal tenderness present, no guarding, rigidity, improved bowel sounds since yesterday Musculoskeletal: Scoliosis noted, extremely deformed rheumatoid bilateral upper extremities, knees and bilateral toes, severe scaling noted on bilateral lower extremity, onychomycosis noted on all toes, no pitting edema, peripheral pulsations are intact on both sides Neurological: Speech is clear, alert, and oriented x 4. No motor or sensory deficit, deep tendon reflexes normal, cerebellar intact. Cranial nerves II-XII intact. Skin: Warm and dry Coagulation Studies Laboratory Tests Test 07/12/25 13:55 Prothrombin Time 11.7 SECONDS (9.0-12.0) INR International Normalized Ratio 1.2 INR Activated Partial Thromboplast Time 25 SECONDS (22-32) Coagulation Comments Advance Care Planning Advanced Care plannin - 30 Minutes Assessment Assessment 85-year-old female with history of recurrent small-bowel obstructions, partial bowel resection, severe rheumatoid arthritis transferred from [facility] for further evaluation of current episode of small-bowel obstruction. Plan Plan Small-bowel obstruction s/p exploratory laparotomy with lysis of adhesions by Dr. Nunn - 07/12/25 Recurrent small-bowel obstruction s/p bowel resection post polyp of 2 cm in 1959 Patient had chief complaints of abdominal pain, the patient in the epigastric region and diffuse abdominal pain throughout and had multiple episodes of bilious emesis CT scan as per [facility]: Small-bowel obstruction not extensive, small amount of free fluid in the pelvis, moderate constipation As per patient, the pain/discomfort decreased post NG tube placement([facility]) Her abdomen on palpation did not seem rigid, no bowel sounds were appreciated on auscultation. Did not consult surgeon as this time, because of the moderate severity of SBO and relief post NG tube placement Lactic acid, potassium within normal limits Plan NPO, NG tube in place CTA abdomen pelvis with oral contrast has been ordered Please consult surgeon in am Initiated the patient on fluids normal saline 100 mL/hour 07/11/25 No further vomiting episodes, patient is nauseous and abdomen pain slightly reduced to severity of 7/10 NG tube drained 500 mL bilious fluid Hypoactive bowel sounds heard Diffuse abdominal tenderness present with no rigidity Patient is allergic to contrast, hence prednisone 50 mg and Benadryl 50 mg was given abdomen/pelvis CT with oral contrast Abdomen/pelvis CT with oral contrast shows multiple loops of abnormally dilated small bowel up to 4.5 cm with air-fluid levels and luminal narrowing in the right lower quadrant suggesting partial small bowel obstruction, possibly partial high-grade SBO. -small amount of contrast seen within the distal small bowel loops which are nondistended as well as the proximal colon -mesenteric edema and small amount of ascites fluid which may be secondary to the underlying small bowel obstruction -large volume stool in the colon Continue NS at 100 mL/hour, BNP elevated-2456, follow up echo and adjust fluids Total bilirubin is 1.4, follow up direct bilirubin Continue IV Zofran 4 mg q.6h p.r.n. Surgery, Dr. Nunn was consulted and awaiting recommendations 07/12/25 NG tube drained 500 mL of dark bilious fluid Patient complains of moderate abdominal pain and nausea, no vomiting episodes, no fever, chills Total bilirubin is 1.5, diet bilirubin is 0.3- indirect hyperbilirubinemia, most probably due to stress She is scheduled for surgery today by Dr. Nunn-exploratory laparotomy with possible partial bowel resection Reduced rate of NS to 50 mL/hour due to elevated BNP of 2456, although patient is not fluid overloaded 07/13/25 Post op day-1 She underwent exploratory laparotomy with lysis of adhesions by Dr. Nunn She has severe abdominal pain, complains of nausea Minimal drainage from NG tube Surgical site shows no erythema, warmth or discharge She did not pass flatus Pain meds in place Monitor bowel movements 07/14/25 Postop day 2 Patient complains abdominal pain of severity 8/10, pain meds in place 600 mL drained from NG tube in past 12 hours She is on clear liquid diet She did not pass flatus Surgical site shows no erythema or discharge Monitor bowel movements Glucose is 47-started hypoglycemia protocol Monitor glucose 07/15/25 Postop day 3 Patient is drowsy and complaints of abdominal pain while awake, pain management with PCP pump, morphine and tramadol She has low pain threshold and opioid habituation 450 ml drained from NG tube in past 12 hours She did not pass flatus Clear liquid diet Surgical site shows no erythema or discharge Glucose is 82 07/16/25 Postop day 4 She still complains of abdominal pain-she has low pain threshold and opioid habituation, on tramadol q.4h p.r.n. She has no NG tube, she has nausea but no vomiting episodes On clear liquid diet She states that she did pass flatus Dressing present over surgical site with no drainage, bleeding or soakage Sluggish, hypoactive bowel sounds present Monitor for bowel movements 07/17/2025 Patient has minimal bowel sounds, she is passing flatus Dr. Nunn recommended safe for discharge post bowel movement Patient received additional doses of senna and milk of magnesia Dressing in place with no signs of infection PT recommended post-acute care, but patient and family requested home discharge as they have adequate support at home FELECIA, less likely prerenal due to renal tubular stasis Resolved Severe Rheumatoid arthritis Patient is on biological Xeljanz XR (tofacitinib) Patient also takes tramadol for her pain Pain medications in place-tramadol q.4h p.r.n. Atrial fibrillation history, Jhonatan Vasc score three Patient has a history of atrial fibrillation, does not take any anticoagulants for that Current EKG sinus rhythm Patient stated that she did take an anticoagulant once, but it made her very dizzy and upset her stomach and she did not want to take anything for it as she feels it is well controlled BNP is 2456, Echo showed LVEF of 70% with mildly dilated RV, PASP of 31 mm Hg, mild mitral regurgitation and trace tricuspid regurgitation. Chronic constipation Patient stated that she developed constipation after taking pain medications for her rheumatoid arthritis She takes senna for her constipation regularly Bowel care in place History of hypothyroidism Patient states that she has a history of hypothyroidism, but stopped taking medications as it was controlled TSH is normal-4.22 Moderate malnutrition BMI 19.4kg/m2, albumin 3.[address] History of recurrent falls Fall precautions in place History of depression Patient normally uses estradiol patch, continue once med rec is done Code Status: DNR DVT Prophylaxis: SCDs Analgesia/Sedation: Morphine/[place] Lines/Tubes: PIV Nutrition: Clear liquid diet PT:yes Prognosis: Guarded Disposition: PT recommended post-acute care, but family requested home discharge Dr. Jeronimo recommended discharge post bowel movement Shea Trejo IM Resident, PGY2 Date of Service: Jul 17, 2025 Billing Provider: MELANIE LOPEZ MD, GAURAV, RES Jul 17, 2025 16:57
[2025-07-17] MEDS: magnesium hydroxide 30ml (MOM) UD suspension PO ONE (17:38)
[2025-07-17] MEDS ORDERED: Ensure Enlive - 237ML PO SCH (18:00)
[2025-07-18 06:00] VITALS: BP 137/87; PULSE 79; RESP 78; TEMP 98.1; O2SAT 95
[2025-07-18 08:00] VITALS: RESP 16; O2SAT 96
[2025-07-18] MEDS: Ensure Enlive - 237ML PO SCH (08:00)
[2025-07-18 08:16] LABS: MEAN PLATELET VOLUME 7.5 FL (7.4-10.4); RED CELL DISTRIBUTION WIDTH 14.7 % (11.5-14.5)
[2025-07-18 08:28] LABS: CREATININE 0.78 MG/DL (0.40-0.90); TOTAL CARBON DIOXIDE 33.6 MMOL/L (24-32); eCRCL 39 ML/MIN; eGFR 70 ML/MIN
[2025-07-18 10:00] VITALS: BP 125/71; PULSE 95; RESP 16; TEMP 97.3; O2SAT 97
--- NOTE | 2025-07-18 11:55 | PROGRESS NOTE- Residence ---
Progress Note - Resident Providers to CC Resident Creating Document: JUAN HERNANDEZ RES ~ Antibiotic Timeout Antibiotic Ordered?: No Subjective Patient was seen and examined bedside. She had a bowel movement with formed stool today morning. She is tolerating oral supplements, she is mildly nauseous but denies vomiting. She states that her abdominal pain is improving. She does not have NG tube. She denies fever, chills. She has been able to walk around. She states that she does not have a ride home today, and wants to be discharged tomorrow. Objective Vital Signs Date Time Temp Pulse Resp B/P (MAP) Pulse Ox O2 Delivery O2 Flow Rate FiO2 07/18/25 10:11 14 07/18/25 10:00 97.3 95 125/71 (89) 97 Room Air 07/18/25 03:24 0.0 Result Diagram: 07/18/25 0805 07/18/25 0805 Awake , alert, and oriented x4, malnourished, in no acute distress HEENT: Atraumatic, normocephalic, EOMI, anicteric sclera ; pink conjunctiva Neck: Trachea midline. Supple, full range of motion, no JVD Cardiac: Regular rhythm, regular rate with no murmurs all over the precordium, bilateral breast implants present Respiratory: Equal breath sounds bilaterally, no tachypnea, no wheezing ,rub or rales, Chest wall is symmetric and without deformity. Gastrointestinal: Midline incision clean and dry, Abdomen mildly distended, soft, mild diffuse abdominal tenderness present, no guarding, rigidity, normal bowel sounds heard Musculoskeletal: Scoliosis noted, extremely deformed rheumatoid bilateral upper extremities, knees and bilateral toes, severe scaling noted on bilateral lower extremity, onychomycosis noted on all toes, no pitting edema, peripheral pulsations are intact on both sides Neurological: Speech is clear, alert, and oriented x 4. No motor or sensory deficit, deep tendon reflexes normal, cerebellar intact. Cranial nerves II-XII intact. Skin: Warm and dry Coagulation Studies Laboratory Tests Test 07/12/25 13:55 Prothrombin Time 11.7 SECONDS (9.0-12.0) INR International Normalized Ratio 1.2 INR Activated Partial Thromboplast Time 25 SECONDS (22-32) Coagulation Comments Assessment Assessment 85-year-old female with history of recurrent small-bowel obstructions, partial bowel resection, severe rheumatoid arthritis transferred from [facility] for further evaluation of current episode of small-bowel obstruction. Plan Plan Small-bowel obstruction s/p exploratory laparotomy with lysis of adhesions by Dr. Nunn - 07/12/25 Recurrent small-bowel obstruction s/p bowel resection post polyp of 2 cm in 1959 Patient had chief complaints of abdominal pain, the patient in the epigastric region and diffuse abdominal pain throughout and had multiple episodes of bilious emesis CT scan as per [facility]: Small-bowel obstruction not extensive, small amount of free fluid in the pelvis, moderate constipation As per patient, the pain/discomfort decreased post NG tube placement([facility]) Her abdomen on palpation did not seem rigid, no bowel sounds were appreciated on auscultation. Did not consult surgeon as this time, because of the moderate severity of SBO and relief post NG tube placement Lactic acid, potassium within normal limits Plan NPO, NG tube in place CTA abdomen pelvis with oral contrast has been ordered Please consult surgeon in am Initiated the patient on fluids normal saline 100 mL/hour 07/11/25 No further vomiting episodes, patient is nauseous and abdomen pain slightly reduced to severity of 7/10 NG tube drained 500 mL bilious fluid Hypoactive bowel sounds heard Diffuse abdominal tenderness present with no rigidity Patient is allergic to contrast, hence prednisone 50 mg and Benadryl 50 mg was given abdomen/pelvis CT with oral contrast Abdomen/pelvis CT with oral contrast shows multiple loops of abnormally dilated small bowel up to 4.5 cm with air-fluid levels and luminal narrowing in the right lower quadrant suggesting partial small bowel obstruction, possibly partial high-grade SBO. -small amount of contrast seen within the distal small bowel loops which are nondistended as well as the proximal colon -mesenteric edema and small amount of ascites fluid which may be secondary to the underlying small bowel obstruction -large volume stool in the colon Continue NS at 100 mL/hour, BNP elevated-2456, follow up echo and adjust fluids Total bilirubin is 1.4, follow up direct bilirubin Continue IV Zofran 4 mg q.6h p.r.n. Surgery, Dr. Nunn was consulted and awaiting recommendations 07/12/25 NG tube drained 500 mL of dark bilious fluid Patient complains of moderate abdominal pain and nausea, no vomiting episodes, no fever, chills Total bilirubin is 1.5, diet bilirubin is 0.3- indirect hyperbilirubinemia, most probably due to stress She is scheduled for surgery today by Dr. Nunn-exploratory laparotomy with possible partial bowel resection Reduced rate of NS to 50 mL/hour due to elevated BNP of 2456, although patient is not fluid overloaded 07/13/25 Post op day-1 She underwent exploratory laparotomy with lysis of adhesions by Dr. Nunn She has severe abdominal pain, complains of nausea Minimal drainage from NG tube Surgical site shows no erythema, warmth or discharge She did not pass flatus Pain meds in place Monitor bowel movements 07/14/25 Postop day 2 Patient complains abdominal pain of severity 8/10, pain meds in place 600 mL drained from NG tube in past 12 hours She is on clear liquid diet She did not pass flatus Surgical site shows no erythema or discharge Monitor bowel movements Glucose is 47-started hypoglycemia protocol Monitor glucose 07/15/25 Postop day 3 Patient is drowsy and complaints of abdominal pain while awake, pain management with PCP pump, morphine and tramadol She has low pain threshold and opioid habituation 450 ml drained from NG tube in past 12 hours She did not pass flatus Clear liquid diet Surgical site shows no erythema or discharge Glucose is 82 07/16/25 Postop day 4 She still complains of abdominal pain-she has low pain threshold and opioid habituation, on tramadol q.4h p.r.n. She has no NG tube, she has nausea but no vomiting episodes On clear liquid diet She states that she did pass flatus Dressing present over surgical site with no drainage, bleeding or soakage Sluggish, hypoactive bowel sounds present Monitor for bowel movements 07/17/2025 Patient has minimal bowel sounds, she is passing flatus Dr. Nunn recommended safe for discharge post bowel movement Patient received additional doses of senna and milk of magnesia Dressing in place with no signs of infection PT recommended post-acute care, but patient and family requested home discharge as they have adequate support at home 07/18/25 Postop day - 6 Patient had bowel movement with formed stool today morning She is tolerating oral supplements, complaints of nausea but no vomiting Bowel sounds heard Abdominal pain improving Dressing in place with no signs of infection She has been able to walk with PT Plan was to discharge today, but patient stated that she does not have a ride home today and wants to be discharged tomorrow. FELECIA, less likely prerenal due to renal tubular stasis Resolved Severe Rheumatoid arthritis Patient is on biological Xeljanz XR (tofacitinib) Patient also takes tramadol for her pain Pain medications in place-tramadol q.4h p.r.n. Atrial fibrillation history, Jhonatan Vasc score three Patient has a history of atrial fibrillation, does not take any anticoagulants for that Current EKG sinus rhythm Patient stated that she did take an anticoagulant once, but it made her very dizzy and upset her stomach and she did not want to take anything for it as she feels it is well controlled BNP is 2456, Echo showed LVEF of 70% with mildly dilated RV, PASP of 31 mm Hg, mild mitral regurgitation and trace tricuspid regurgitation. Chronic constipation Patient stated that she developed constipation after taking pain medications for her rheumatoid arthritis She takes senna for her constipation regularly Bowel care in place History of hypothyroidism Patient states that she has a history of hypothyroidism, but stopped taking medications as it was controlled TSH is normal-4.22 Moderate malnutrition BMI 19.4kg/m2, albumin 3.[address] History of recurrent falls Fall precautions in place History of depression Patient normally uses estradiol patch, continue once med rec is done Code Status: DNR DVT Prophylaxis: SCDs Analgesia/Sedation: Morphine/[place] Lines/Tubes: PIV Nutrition: Oral supplements PT:yes Prognosis: Guarded Disposition: Patient had bowel movement and is tolerating oral supplements, patient walked with PT, plan was to discharge today but patient stated that she does not have a ride back home today and she wants to be discharged tomorrow, we will discharge tomorrow in a.m. Resident attestation: The patient note has been reviewed and supervised by senior residents PGY-2/ PGY-3. Patient was seen, examined and discussed with attending physician. Juan Hernandez MD Internal Medicine resident, PGY-1 Date of Service: Jul 18, 2025 Billing Provider: MELANIE LOPEZ MD,JUAN, RES Jul 18, 2025 11:55
--- NOTE | 2025-07-18 13:59 | PROGRESS NOTE ---
Progress Note ID Providers to CC ~ Progress Note Progress Note: +bm-call if needed JUANA WADE MD Jul 18, 2025 13:59
[2025-07-18 18:00] VITALS: BP 115/64; PULSE 85; RESP 20; TEMP 97.7; O2SAT 98
[2025-07-18 19:03] LABS: LEUKOCYTE ESTERASE ,URINE NEGATIVE (Neg); NITRITES, URINE NEGATIVE (Neg); OCCULT BLOOD,URINE NEGATIVE (Neg)
[2025-07-18 19:15] LABS: UA COLLECTION TYPE NON-SPECIFIED
[2025-07-18 20:00] VITALS: RESP 20; O2SAT 98
[2025-07-18 22:00] VITALS: BP 110/63; PULSE 79; RESP 18; TEMP 97.7; O2SAT 99
[2025-07-19 06:00] VITALS: BP 139/79; PULSE 76; RESP 14; TEMP 97.4; O2SAT 100
[2025-07-19 07:09] LABS: MEAN PLATELET VOLUME 7.6 FL (7.4-10.4); RED CELL DISTRIBUTION WIDTH 15.0 % (11.5-14.5)
[2025-07-19 07:19] LABS: CREATININE 0.88 MG/DL (0.40-0.90); TOTAL CARBON DIOXIDE 31.4 MMOL/L (24-32); eCRCL 35 ML/MIN; eGFR 61 ML/MIN
[2025-07-19 12:30] VITALS: RESP 16
--- NOTE | 2025-07-19 14:19 | DISCHARGE SUMMARY-Residence ---
Discharge Summary Providers to CC Resident Creating Document: JUAN HERNANDEZ, RES ~ Discharge Summary Admission Diagnosis: Small-bowel obstruction Hospital Course DATE OF ADMISSION: 07/11/25 DATE OF DISCHARGE: 07/19/25 Discharge Diagnosis\Comment: Small-bowel obstruction s/p exploratory laparotomy with lysis of adhesions by Dr. Nunn - 07/12/25 FELECIA, more likely prerenal due to renal tubular stasis Severe Rheumatoid arthritis Atrial fibrillation history, Jhonatan Vasc score three Chronic constipation History of hypothyroidism Moderate malnutrition History of depression Operations\Procedures: Surgeon, Dr. Nunn- Exploratory laparotomy with enterolysis and bilateral transversus abdominis plain no blocks by injection using 266 mg of Exparel Consultants: Surgeon, Dr. Nunn Complications: None Condition on DC: Stable Continued Medications: Acetaminophen (Tylenol Extra Strength) 500 Mg Tablet 1 TABLET PO Q8H, #10 TABLET Atorvastatin Calcium* (Lipitor*) 40 Mg Tablet 1 TAB PO DAILY for 30 Days, #30 TAB Estradiol (Estradiol) 0.05 Mg/24 Hour Patch.tdwk 1 PATCH TD Q7D for 28 Days, #4 PATCH 0 Refills Loperamide Hcl (Loperamide) 2 Mg Capsule 1 CAP PO Q2H for loose stool, #40 CAP 0 Refills Lorazepam (Ativan) 1 Mg Tablet 1 TAB PO Q6H for anxiety for 30 Days, #90 TAB 0 Refills Melatonin (Melatonin) 5 Mg Tab.chew 1 TAB PO HS for sleep for 30 Days, #30 TAB 0 Refills Naloxone HCl (Naloxone HCl) 4 Mg/Actuation [place] Omeprazole (Prilosec) 40 Mg Capsule 1 CAP PO DAILY for 30 Days, #30 CAP ONDANSETRON ODT 4mg tablet (Ondansetron Odt) 4 Mg Tab.rapdis 1 TAB PO Q6H PRN PRN for nausea/vomiting for 4 Days, #16 TAB 0 Refills Sennosides/Docusate Sodium (Senna Plus 8.6-50 mg Tablet) 8.6 Mg-50 Mg Tablet 2 TAB PO HS for 14 Days, #28 TAB 0 Refills Tofacitinib Citrate (Xeljanz) 5 Mg Tablet 1 TAB PO Q12H for 30 Days, #60 TAB 0 Refills Tramadol HCl (Tramadol HCl) 50 Mg Tablet 50 TAB PO Q12H PRN PRN for pain for 30 Days, #60 TAB Discharge Summary: HPI as per admitting physician: 85-year-old fragile female patient, past history of recurrent small-bowel obstructions, partial bowel resection, severe rheumatoid arthritis was a transferred to us from [facility]. As per records, patient presented to the ED with chief complaints of severe epigastric pain, associated with three episodes of emesis of bilious in nature. Patient has a had three small bowel obstructions in the past, two out of which required surgical intervention to resolve. Patient had abdominal CT done at [facility], which showed findings consistent with small-bowel obstruction not extensive. Patient was placed on NG tube, which drained bilious fluid. Patient reported significant decrease in discomfort/pain post NG tube placement. Patient was transferred to our facility possible further intervention. Patient also has a history of ileus post hip replacement surgery last year Patient lives alone in her house Patient's daughter stays about 75 miles from patient's house Patient's primary care doctor is Dr. Alex Carrizales from [facility] As per patient, normally does not use a walker. Has had multiple falls in the last one year, has had a wrist fracture and hip fracture because of falls. Hospital course: Patient was in moderate pain and she had some relief with NG tube placement. CT scan as per [place] showed small bowel obstruction with small amount of free fluid in the pelvis and moderate constipation. Her pain was not subsiding hence surgeon was consulted. Patient was allergic to contrast, hence prednisone 50 mg and Benadryl 50 mg was given before abdomen/pelvis CT with oral contrast. Abdomen/pelvis CT with oral contrast showed multiple loops of abnormally dilated small bowel up to 4.5 cm with air-fluid levels and luminal narrowing in the right lower quadrant suggesting partial small bowel obstruction, possibly partial high-grade SBO. Patient underwent exploratory laparotomy with lysis of adhesions by Dr. Nunn on July 12, 2025. Vitals, Electrolytes and lactic acid were normal. She was continued on NG tube up to 3 days postop due to continuous drainage of bilious fluid. She passed flatus on postop day 4 and bowel sounds were heard, and had a bowel movement on postop day 6 and was cleared for discharge by Dr. Nunn. She was able to tolerate oral supplements on the day of discharge and was able to walk around with PT. She had some nausea but denied vomiting and pain subsided. FELECIA resolved with fluids and she was given her home medication tramadol for pain of both SBO and rheumatoid arthritis. Patient has history of atrial fibrillation, Jhonatan Vasc score 3 but she stated that she did take an anticoagulant once, but it made her very dizzy and upset her stomach and she did not want to take anything for it as she feels it is well controlled, which should be followed outpatient. Patient did not experience further complications throughout the entire hospital stay. Patient was seen and examined on the day of discharge. All labs, diagnostic workups, discharge plan discussed with the patient in detail during visit before discharge. All questions and concerns answered to the best of my professional knowledge. Imaging: Echocardiogram-07/11/25 Normal LV size and wall thickness. Overall systolic function is normal. Overall LVEF is 70%. Right ventricle is mildly dilated with normal function. Estimated PA systolic pressure is 31 mmHg. The left atrium size is normal. The right atrium size is normal. Trileaflet AV appears sclerotic without stenosis or insufficiency. Mild MV annular calcification without stenosis. Trace to mild regurgitation. TV appears structurally normal with trace regurgitation. Normal pericardium. No pericardial effusion seen. Abdomen/pelvis CT with oral contrast-07/11/25 -Multiple loops of abnormally dilated small bowel up to 4.5 cm with air-fluid levels and luminal narrowing in the right lower quadrant suggesting partial small bowel obstruction, possibly partial high-grade SBO. Recommend surgical consultation. -Small amount of contrast seen within the distal small bowel loops which are nondistended as well as the proximal colon -Mesenteric edema and small amount of ascites fluid which may be secondary to the underlying small bowel obstruction. -Large volume stool in the colon. Chest x-ray-07/12/25 Enteric tube terminates in the stomach. Abdomen x-ray-07/14/25 Nonobstructive bowel gas pattern. Large stool burden Abdomen x-ray-07/16/25 Nonobstructive bowel gas pattern. Distended small and large bowel loops with a large stool burden. Interval removal of previously seen enteric tube. Laboratory Tests Test 07/18/25 00:43 07/18/25 04:19 07/18/25 08:05 07/18/25 10:44 Glucometer 101 mg/dl 101 mg/dl 128 mg/dl White Blood Count 4.6 X10'3 Red Blood Count 4.24 X10'6 Hemoglobin 12.1 g/dl Hematocrit 37.3 % Mean Corpuscular Volume 87.8 FL Mean Corpuscular Hemoglobin 28.6 PG Mean Corpuscular Hemoglobin Concent 32.6 g/dL Red Cell Distribution Width 14.7 % Platelet Count 259 X10'3 Mean Platelet Volume 7.5 FL Neutrophils (%) (Auto) 69.2 % Lymphocytes (%) (Auto) 12.1 % Monocytes (%) (Auto) 14.8 % Eosinophils (%) (Auto) 3.5 % Basophils (%) (Auto) 0.4 % Neutrophils # (Auto) 3.2 X10'3 Lymphocytes # (Auto) 0.6 X10'3 Monocytes # (Auto) 0.7 X10'3 Eosinophils # (Auto) 0.2 X10'3 Basophils # (Auto) 0.0 X10'3 CBC Comment Sodium Level 135 MMOL/L Potassium Level 4.1 MMOL/L Chloride Level 100 MMOL/L Carbon Dioxide Level 33.6 MMOL/L Anion Gap 1 Blood Urea Nitrogen 8 MG/DL Creatinine 0.78 MG/DL Estimated GFR/1.73 m2 70 ML/MIN BUN/Creatinine Ratio 10.3 Glucose Level 107 MG/DL Calcium Level 8.3 MG/DL Total Bilirubin 0.5 MG/DL Aspartate Amino Transf (AST/SGOT) 23 U/L Alanine Aminotransferase (ALT/SGPT) 7 U/L Alkaline Phosphatase 60 IU/L Total Protein 6.2 G/DL Albumin 2.5 G/DL Globulin 3.7 G/DL Albumin/Globulin Ratio 0.7 Chemistry Comments Test 07/18/25 17:34 07/18/25 18:15 07/18/25 23:19 07/19/25 06:36 Glucometer 85 mg/dl 108 mg/dl Urine Specimen Description Non-specified Urine Color Yellow Urine Clarity Clear Urine pH 8.0 Urine Specific [place] 1.015 Urine Protein Negative mg/dl Urine Glucose (UA) Negative mg/dl Urine Ketones Negative mg/dl Urine Occult Blood Negative Urine Nitrite Negative Urine Bilirubin Negative Urine Urobilinogen 0.2 E.U/dL Urine Leukocyte Esterase Negative Urine Culture Indicated Not ind Volume Urine Centrifuged 10 ml Urine Comment White Blood Count 4.7 X10'3 Red Blood Count 3.98 X10'6 Hemoglobin 11.6 g/dl Hematocrit 34.7 % Mean Corpuscular Volume 87.1 FL Mean Corpuscular Hemoglobin 29.1 PG Mean Corpuscular Hemoglobin Concent 33.4 g/dL Red Cell Distribution Width 15.0 % Platelet Count 260 X10'3 Mean Platelet Volume 7.6 FL Neutrophils (%) (Auto) 66.9 % Lymphocytes (%) (Auto) 12.8 % Monocytes (%) (Auto) 16.4 % Eosinophils (%) (Auto) 3.6 % Basophils (%) (Auto) 0.3 % Neutrophils # (Auto) 3.2 X10'3 Lymphocytes # (Auto) 0.6 X10'3 Monocytes # (Auto) 0.8 X10'3 Eosinophils # (Auto) 0.2 X10'3 Basophils # (Auto) 0.0 X10'3 CBC Comment Sodium Level 135 MMOL/L Potassium Level 4.1 MMOL/L Chloride Level 100 MMOL/L Carbon Dioxide Level 31.4 MMOL/L Anion Gap 4 Blood Urea Nitrogen 13 MG/DL Creatinine 0.88 MG/DL Estimated GFR/1.73 m2 61 ML/MIN BUN/Creatinine Ratio 14.8 Glucose Level 90 MG/DL Calcium Level 8.3 MG/DL Total Bilirubin 0.4 MG/DL Aspartate Amino Transf (AST/SGOT) 20 U/L Alanine Aminotransferase (ALT/SGPT) 8 U/L Alkaline Phosphatase 59 IU/L Total Protein 6.1 G/DL Albumin 2.5 G/DL Globulin 3.6 G/DL Albumin/Globulin Ratio 0.7 Chemistry Comments Vital Signs Date Time Temp Pulse Resp B/P (MAP) Pulse Ox O2 Delivery O2 Flow Rate FiO2 07/19/25 12:30 16 07/19/25 08:00 Room Air 07/19/25 06:00 97.4 76 139/79 (99) 100 07/18/25 20:00 0.0 Examination at discharge: Awake , alert, and oriented x4, malnourished, in no acute distress HEENT: Atraumatic, normocephalic, EOMI, anicteric sclera ; pink conjunctiva Neck: Trachea midline. Supple, full range of motion, no JVD Cardiac: Regular rhythm, regular rate with no murmurs all over the precordium, bilateral breast implants present Respiratory: Equal breath sounds bilaterally, no tachypnea, no wheezing ,rub or rales, Chest wall is symmetric and without deformity. Gastrointestinal: Midline incision clean and dry, Abdomen mildly distended, soft, mild diffuse abdominal tenderness present, no guarding, rigidity, normal bowel sounds heard Musculoskeletal: Scoliosis noted, extremely deformed rheumatoid bilateral upper extremities, knees and bilateral toes, severe scaling noted on bilateral lower extremity, onychomycosis noted on all toes, no pitting edema, peripheral pulsations are intact on both sides Neurological: Speech is clear, alert, and oriented x 4. No motor or sensory deficit, deep tendon reflexes normal, cerebellar intact. Cranial nerves II-XII intact. Skin: Warm and dry Advice at discharge: Activity as tolerated. No lifting greater than 20 pounds for 4 weeks. Follow-up with Dr. Lion Nunn in 1-2 weeks. Call [phone] May shower. Diet as tolerated. Follow up with PCP in 1-2 weeks Please discuss with PCP regarding initiation of Eliquis for AFib and get referral to jack tamp operator if necessary Please call 911 or come to ER for further episodes of abdominal pain, nausea, vomiting, chest pain , palpitations etc *Problems/Diagnosis: (1) Small bowel obstruction Status: Acute (2) Small bowel obstruction (3) S/P exploratory laparotomy (4) FELECIA (acute kidney injury) (5) Rheumatoid arthritis (6) Afib (7) Constipation (8) Hypothyroidism (9) Moderate malnutrition (10) History of depression Total Time Spent on D/C: > 30 Minutes Date of Service: Jul 19, 2025 Billing Provider: MELANIE LOPEZ MD,JUAN, RES Jul 19, 2025 14:02
== END 2025-07-19 14:35 | disposition home or self-care (01) | DRG 335 ==
LOC: ER 21:02 → ED HOLD 07-11 00:20 → EDBEDREQ 07-11 02:37 → ORTHO 4S 07-11 02:55 → PACU 07-12 10:19 → ORTHO 4S 07-12 10:19
PROVIDERS: ADMIT Internal Medicine Pulmonary Disease; ATTEND Family Medicine
PROC: 0DNU0ZZ Release Omentum, Open Approach (ICD-10-PCS; 2025-07-12)
PROC: 0DN80ZZ Release Small Intestine, Open Approach (ICD-10-PCS; principal; 2025-07-12 08:11)
DX: K56.51 Intestinal adhesions [bands], with partial obstruction (principal); N17.0 Acute kidney failure with tubular necrosis; E44.0 Moderate protein-calorie malnutrition; Z68.1 Body mass index [BMI] 19.9 or less, adult; M06.9 Rheumatoid arthritis, unspecified; E03.9 Hypothyroidism, unspecified; I48.91 Unspecified atrial fibrillation; Z66 Do not resuscitate; I08.1 Rheumatic disorders of both mitral and tricuspid valves; F32.A Depression, unspecified; Z91.041 Radiographic dye allergy status; Z82.0 Family history of epilepsy and other diseases of the nervous system; K21.9 Gastro-esophageal reflux disease without esophagitis; E78.5 Hyperlipidemia, unspecified; F41.9 Anxiety disorder, unspecified; Z90.49 Acquired absence of other specified parts of digestive tract
CPT/HCPCS: 36415; 71045; 74018; 74176; 80053; 81001; 81003; 82248; 82570; 82948; 83036; 83605; 83735; 83880; 83935; 84100; 84132; 84156; 84300; 84443; 84484; 85007; 85025; 85610; 85730; 87040; 87081; 87207; 93005; 93306; 96374; 96375; 97110; 97116; 97530; 99285; A4215; A4618; A6250; A7000; C1758; G0378; J0131; J0666; J0690; J1100; J1171; J1650; J1815; J1885; J2003; J2212; J2270; J2405; J2704; J2710; J3010; J3360; J3490; J7030; J7120; P9045; Q9963; Q9967